=== PATIENT | female | born 1995 | race Two or more races ===

== ENCOUNTER 2024-09-15 13:54 | Emergency (ER) | payer MEDICAID, SELFPAY ==
[2024-09-15 13:55] VITALS: BMI 33.1
[2024-09-15 14:10] VITALS: BP 131/88; PULSE 84; RESP 20; TEMP 37.1; O2SAT 99
--- NOTE | 2024-09-15 14:14 | XR_ITS ---
Examination: Complete OB ultrasound, less than 14 weeks, transabdominal Date and time of exam: September 15, 2024 1531 hrs. Indications: Pelvic pain and vaginal bleeding beginning 2 days ago Technique: Obstetrical ultrasound images less than 14 weeks performed via transabdominal imaging Findings: Uterus 9.6 cm endometrial stripe 2.6 cm No intrauterine gestation Right ovary 4.6 cm arterial flow, possible gestational sac 13 mm in the right adnexal region with hyperechoic rim Left ovary 3.5 cm arterial flow Impression: No intrauterine gestation Suspicious for right ectopic , the appearance should be clinically correlated and short-term follow-up transvaginal pelvic sonography strongly recommended
[2024-09-15 14:38] LABS: Basophils % (Auto) 0 % (0-2.5); Eosinophils # (Auto) 0.1 Thou/mm3 (0.0-0.5); Eosinophils % (Auto) 1 % (0-10); Hemoglobin 10.8 g/dL (12.0-16.0); Immature Granulocytes % (Auto) 0 % (0-0); Immature Granulocytes Auto 0.02 Thou/mm3 (0.00-0.00); Lymphocytes # (Auto) 1.7 Thou/mm3 (1.0-4.8); Lymphocytes % (Auto) 19 % (10-50); Mean Corpuscular HGB Conc 32.7 g/dl (31.0-37.0); Mean Corpuscular Hemoglobin 24.9 pg (25.0-35.0); Mean Corpuscular Volume 76 fL (80-100); Monocytes # (Auto) 0.5 Thou/mm3 (0.0-0.8); Monocytes % (Auto) 6 % (0-12); Neutrophils # (Auto) 6.5 Thou/mm3 (1.8-7.7); Neutrophils % (Auto) 74 % (37-80); Nucleated Red Blood Cell % 0 /100 WBC (0); Platelet Count 219 Thou/mm3 (140-440); RDW Standard Deviation 41.3 fL (36.4-46.3); Red Blood Count 4.33 Miln/mm3 (4.00-5.20); White Blood Count 8.9 Thou/mm3 (3.6-11.0)
[2024-09-15 14:53] LABS: Collection Type, Urine Clean Catch; WBC,Urine 0 /hpf (0-5)
[2024-09-15 15:00] LABS: Alanine Aminotransferase < 7 U/L (10-49); Albumin, Serum 4.3 gm/dL (3.5-5.0); Albumin/Globulin Ratio 1.5 (1.2-2.2); Alkaline Phosphatase 91 U/L (46-116); Anion Gap 9 (7-16); Aspartate Amino Transferase 12 U/L (0-34); BUN/Creatinine Ratio 20 Ratio (12-20); Bilirubin,Total 0.6 mg/dL (0.3-1.2); Blood Urea Nitrogen 12 mg/dL (9-23); Calcium 8.9 mg/dL (8.3-10.6); Calcium (Corrected) 8.9 mg/dL (8.5-10.1); Carbon Dioxide 23.6 mMol/L (20.0-31.0); Chloride 106 mMol/L (98-107); Creatinine (Component) 0.6 mg/dL (0.6-1.3); Estimated Creatinine Clearance 119.4 mL/min (>60); Globulin 2.9 gm/dL (2.3-3.5); Glucose 99 mg/dL (74-106); Osmolality,Calculated 277 (275-295); Potassium 3.7 mMol/L (3.4-5.1); Sodium 139 mMol/L (136-145); Total Protein 7.2 gm/dL (5.7-8.2); eGFR > 60 See Note
[2024-09-15 15:08] LABS: Bilirubin,Urine Negative (Negative); Blood,Urine 2+ (Negative); Clarity,Urine Clear (Clear/Hazy); Color,Urine Yellow (Lt Yel-Yel); Glucose, Urine Trace (Negative); Ketones,Urine Trace (Negative); Leukocyte Esterase,Urine Negative (Negative); Nitrite,Urine Negative (Negative); PH,Urine 6.5 (5.0-7.0); Protein,Urine Trace (Neg - Trace); RBC,Urine 216 /hpf (0-3); Specific Gravity,Urine 1.032 (1.001-1.035); Squamous Epithelial Cell,Urine 1 /hpf (0-5); Urobilinogen,Urine Negative mg/dL (0.0-1.0)
[2024-09-15 15:19] LABS: HCG,Qualitative Serum Positive
--- NOTE | 2024-09-15 15:32 | PD.EDRME ---
Rapid Medical Screening Exam [facility] Arrival date/time: 09/15/24 13:54 29-year-old female with no known medical history presents to the emergency room with a chief complaint of vaginal bleeding, vaginal clots, and lower abdominal pain x 3 days. Patient states she has took multiple test which are negative I have greeted and performed a focused initial assessment of this patient. A comprehensive ED assessment and evaluation of the patient, analysis of all test results, and completion of the medical decision making process will be conducted by additional ED providers. Chief Complaint: Abdominal Pain Time Seen by Provider: 09/15/24 14:16 Vital signs: Vital Signs Temperature 98.8 F 09/15/24 14:10 Pulse Rate 84 09/15/24 14:10 Respiratory Rate 20 09/15/24 14:10 Blood Pressure 131/88 H 09/15/24 14:10 Pulse Oximetry (%) 99 09/15/24 14:10 Oxygen Delivery Method Room Air 09/15/24 14:10 Vital signs reviewed by provider: Yes
[2024-09-15 17:32] LABS: INR 0.9 (0.9-1.3); Partial Thromboplastin Time 25.2 Seconds (22.0-36.0); Prothrombin Time 10.3 Seconds (9.0-12.2)
[2024-09-15 17:52] LABS: Beta HCG,Quantitative 259 mIU/mL (<5.0)
--- NOTE | 2024-09-15 18:50 | EDNOTE_ITS ---
ED General RME/HPI General Chief complaint: Abdominal Pain Stated complaint: RLQ ABD PAIN X 2 DAYS Time Seen by Provider: 09/15/24 14:16 Arrival date/time: 09/15/24 13:54 CC: Right lower quadrant abdominal pain with vaginal bleeding pain started 3 days ago, was gone for 1 day and then came back currently the pain is a 6 and 7 for 10 scale the patient denies any back pain or left-sided abdominal pain no prior history of similar NSAIDs. Patient is currently a G7, P4. Not in any acute distress. RME / HPI RME / HPI narrative: 09/15/24 13:54 29-year-old female with no known medical history presents to the emergency room with a chief complaint of vaginal bleeding, vaginal clots, and lower abdominal pain x 3 days. Patient states she has took multiple test which are negative I have greeted and performed a focused initial assessment of this patient. A comprehensive ED assessment and evaluation of the patient, analysis of all test results, and completion of the medical decision making process will be conducted by additional ED providers. Related Data Home Medications ?Medication ?Instructions ?Recorded ?Confirmed vitamins-iron fumarate 27 1 tab PO QDAY 08/0610/30/22 mg iron-folic acid 0.8 mg tablet ( Vitamin) Previous Rx's ?Medication ?Instructions ?Recorded docusate sodium 100 mg capsule 100 mg PO BID #60 caps 10/30/22 (Colace) ferrous sulfate 325 mg (65 mg 325 mg PO BID #60 tabs 0 10/30/22 iron) tablet (Dheeraj-Time) ibuprofen 800 mg tablet 800 mg PO Q6H PRN pain #90 t abs 10/30/22 lanolin 50 % topical ointment 1 applic topical TID PRN skin 10/30/22 irritation #15 tubes meloxicam 7.5 mg tablet 7.5 mg PO QDAY #10 tabs 09/01 10/25 Allergies Allergy/AdvReac Type Severity Reaction Status Date / Time No Known Allergies Allergy Verified 09/15/24 13:57 Review of Systems Review of Systems Narrative Review of Systems: GEN: No fever, no chills, no weight loss EYES: No discharge, no visual changes, no pain HEENT: No ear pain, no congestion, no sore throat PULM: No shortness of breath, no cough, no congestion CV: No chest pain, no dyspnea on exertion, no palpitations GI: No nausea, no vomiting, no diarrhea, no pain, no constipation : No frequency, no urgency, no dysuria MUSC/SKEL: No joint pain, no back pain SKIN: No rash PSYCH: No hallucinations, no depression HEME/LYMPH: No easy bleeding or bruising tendencies NEURO: No weakness, no headache Past Medical History Past Medical History NEUROLOGIC: Negative Neurological Disorders CARDIAC: Negative Cardiac Disorders or Congestive Heart Failure RESPIRATORY: Negative Chronic Obstructive Pulmonary Disease (COPD) GASTROINTESTINAL: Negative Gastrointestinal Disorders GENITOURINARY: Negative Genitourinary Disorders or Renal Disease MUSCULOSKELETAL: Negative Musculoskeletal Disorders ENDOCRINE: Negative Endocrine Disorders, Diabetes Mellitus Type 1 or Diabetes Mellitus Type 2 HEMATOLOGIC: Negative Blood Disorders OTHER HISTORY: Negative Autoimmune Disease, Blood Transfusions, Blood Transfusion Reaction, Anesthesia Reactions, Organ Transplant, Chemotherapy, Radiation Therapy, Hyperbaric Therapy or Cancer Family History FAMILY HISTORY: Negative Family Psychiatric Problems, Family Respiratory Disorders, Family Cardiac Disorders, Family Gastrointestinal Problems, Family Cancer, Family Surgery or Family Anesthesia Reaction Surgical History SURGICAL: Negative Section or Organ Transplant Social History SMOKING STATUS: Never smoker ED Exam Narrative Physical exam: [General: Obese in mild discomfort but not in any acute distress Head normocephalic HEENT: Within acceptable limits Neck is supple nontender Chest equal chest rise nontender to palpation Respiratory: Clear to auscultation no wheezes crackles or rubs CV: Rate rhythm is regular no murmurs rubs or clicks Abdomen is distended secondary to body habitus right lower quadrant abdominal tenderness with palpation. Back: No CVA tenderness no spinous process tenderness from cervical spine thoracic and lumbar spine Skin: Intact no petechiae rash induration ulceration or crepitus Extremities: Moving all extremity against resistance cap refill less than 2 seconds neurosensory intact Neuro: Awake alert oriented x3 Glascow coma 15 no focal deficits] Course Course Course Narrative: Patient was seen by Dr. Nowak in the emergency room was decided the patient to be discharged home and follow-up in his office in 3 days for recheck. Patient will be discharged home with pain medications to follow-up as stated if the patient has worsening symptoms to return the emergency room for reevaluation. Quality Measures none Orders Category Date Time Status US OB <= 14 weeks fetus Stat Exams 09/15/24 14:14 Completed Beta HCG,Quantitative Stat Lab 09/15/24 14:26 Completed CBC Stat Lab 09/15/24 14:26 Completed CMP [Comprehensive Metabolic Panel] Stat Lab 09/15/24 14:26 Completed HCG,Qualitative Serum Stat Lab 09/15/24 14:26 Completed PT [Prothrombin Time with INR] Stat Lab 09/15/24 14:26 Completed PTT [Partial Thromboplastin Time] Stat Lab 09/15/24 14:26 Completed Type and Screen Stat Lab 09/15/24 14:26 Completed UA [Urinalysis] Stat Lab 09/15/24 14:43 Completed Vital Signs Vital signs: Vital Signs Temperature 98.8 F 09/15/24 14:10 Pulse Rate 84 09/15/24 14:10 Respiratory Rate 20 09/15/24 14:10 Blood Pressure 131/88 H 09/15/24 14:10 Pulse Oximetry (%) 99 09/15/24 14:10 Oxygen Delivery Method Room Air 09/15/24 14:10 [facility] Patient data External records reviewed:: [facility] previous records Clinical information provided by:: patient Social determinants that could affect healthcare access:: none Patient has the following chronic illnesses:: Obesity How is presenting disease/condition affected by chronic disease/condition?: u neffected by Evaluation data The following diagnostics were reviewed and interpreted by me:: lab results and radiology exam(s) Lab and/or radiology exams considered but not ordered:: CBC shows no acute leukocytosis H&H of 10.8 and 33.0. Platelets of 219 Coags within acceptable limits CMP shows no acute electrolyte imbalances renal impairment transaminitis or T. bili elevation. Quantitative is positive Beta hCG is 257 Urine 2+ urine RBCs to 16. Blood type is O+. Ultrasound shows a possible right ectopic on the adnexa. Interpretation Summary: Dr. Nowak contacted, he is going to come see the patient in the emergency room. Patient is stable not in any acute distress. Medications Medications considered but not ordered:: None Medication administrations:: None Consultations Consultation(s) initiated? (list below): Yes Diagnosis Differential Diagnosis ED Complaint MDM: Ectopic patient miscarriage early Most likely diagnosis given after review of the tests above:: Incomplete miscarriage Admission Indicated Admission indicated?: not indicated Explain why admission is indicated or not indicated:: Stable for close outpatient follow-up Admission Request Was there a request for admission?: No Disposition Plan Disposition Plan: Discharge Discharge Attestation Discharge Attestation: The patient and all family members were given an opportunity to ask questions and understood the discharge instructions. Discharge instructions specifically effects, indications for sooner follow up or return to the emergency department, and the expected course of current diagnosis. Patient condition: Stable Medical Decision Making Differential Diagnosis Differential Diagnosis: Ectopic patient miscarriage early Lab Data 09/15/24 14:26 09/15/24 14:26 Labs: Lab Results 09/15/24 09/15/24 Range/Units 14:26 14:43 WBC 8.9 (3.6-11.0) Thou/mm3 RBC 4.33 (4.00-5.20) Miln/mm3 Hgb 10.8 L (12.0-16.0) g/dL Hct 33.0 L (36.0-46.0) % MCV 76 L (80-100) fL MCH 24.9 L (25.0-35.0) pg MCHC 32.7 (31.0-37.0) g/dl RDW Std Deviation 41.3 (36.4-46.3) fL Plt Count 219 (140-440) Thou/mm3 Neut % (Auto) 74 (37-80) % Lymph % (Auto) 19 (10-50) % [place] % (Auto) 6 (0-12) % Eos % (Auto) 1 (0-10) % Baso % (Auto) 0 (0-2.5) % Neut # (Auto) 6.5 (1.8-7.7) Thou/mm3 Lymph # (Auto) 1.7 (1.0-4.8) Thou/mm3 [place] # (Auto) 0.5 (0.0-0.8) Thou/mm3 Eos # (Auto) 0.1 (0.0-0.5) Thou/mm3 Baso # (Auto) 0.0 (0.0-0.2) Thou/mm3 Immature Gran # (Auto) 0.02 H (0.00-0.00) Thou/mm3 Absolute Nucleated RBC 0.00 (0.00-0.00) Thou/mm3 Immature Gran % 0 (0-0) % Nucleated RBC % 0 (0) /100 WBC PT 10.3 (9.0-12.2) Seconds INR 0.9 (0.9-1.3) APTT 25.2 (22.0-36.0) Seconds Sodium 139 (136-145) mMol/L Potassium 3.7 (3.4-5.1) mMol/L Chloride 106 (98-107) mMol/L Carbon Dioxide 23.6 (20.0-31.0) mMol/L Anion Gap 9 (7-16) BUN 12 (9-23) mg/dL Creatinine 0.6 (0.6-1.3) mg/dL Estim Creat Clear Calc 119.4 (>60) mL/min eGFR > 60 (60 - ) See Note BUN/Creatinine Ratio 20 (12-20) Ratio Glucose 99 (74-106) mg/dL Calculated Osmolality 277 (275-295) Calcium 8.9 (8.3-10.6) mg/dL Corrected Calcium 8.9 (8.5-10.1) mg/dL Total Bilirubin 0.6 (0.3-1.2) mg/dL AST 12 (0-34) U/L ALT < 7 L (10-49) U/L Alkaline Phosphatase 91 (46-116) U/L Total Protein 7.2 (5.7-8.2) gm/dL Albumin 4.3 (3.5-5.0) gm/dL Globulin 2.9 (2.3-3.5) gm/dL Albumin/Globulin Ratio 1.5 (1.2-2.2) HCG, Qual Positive Beta HCG, Quant 259 (<5.0) mIU/mL Ur Collection Type Clean Catch Urine Color Yellow (Lt Yel-Yel) Urine Clarity Clear (Clear/Hazy) Urine pH 6.5 (5.0-7.0) Ur Specific Chromo 1.032 (1.001-1.035) Urine Protein Trace (Neg - Trace) Urine Glucose (UA) Trace (Negative) Urine Ketones Trace (Negative) Urine Blood 2+ A (Negative) Urine Nitrite Negative (Negative) Urine Bilirubin Negative (Negative) Urine Urobilinogen (Auto) Negative (0.0-1.0) mg/dL Ur Leukocyte Esterase Negative (Negative) Urine RBC 216 H (0-3) /hpf Urine WBC 0 (0-5) /hpf Ur Squamous Epith Cells 1 (0-5) /hpf Urine Bacteria None (None) Blood Type O Positive Antibody Screen NEGATIVE Blood Bank Wristband ID Yes Discharge Plan Plan Patient Disposition: HOME (Self Care) Patient condition on transfer: Stable Prescriptions/Referrals Prescriptions/Med Rec: New meloxicam 7.5 mg tablet 7.5 mg PO QDAY Qty: 10 0RF No Action Vitamin 27 mg iron- 0.8 mg Tablet 1 tab PO QDAY ibuprofen 800 mg tablet 800 mg PO Q6H MDD 4 PRN (Reason: pain) Qty: 90 0RF ferrous sulfate [Dheeraj-Time] 325 mg (65 mg iron) tablet 325 mg PO BID Qty: 60 0RF docusate sodium [Colace] 100 mg capsule 100 mg PO BID Qty: 60 0RF lanolin 50 % ointment 1 applic topical TID PRN (Reason: skin irritation) Qty: 15 0RF Referrals: Eliu (Referring)Jens MD [Referring Provider] - In 1 week No Primary/Family,Physician [Primary Care Provider] - In 1 week Problem List Clinical Impression: Incomplete miscarriage Patient/Caregiver Discharge Instructions Education Materials: ED Miscarriage, Incomplete Additional Instructions: As discussed with Dr. Nowak please follow-up in 3 days with his office if there is a worsening of symptoms including pain or heavy bleeding return the emergency room for reevaluation. Print Language: Kiswahili Stand Alone Forms: Rosalinda Award Info., Work/School Release, Patient Portal Info Letter PA/JOCELINE Supervising Physician EVE/JOCELINE Supervising Physician: Tomas Castellanos ENP
--- NOTE | 2024-09-15 19:03 | PC.NURSE ---
Initial contact with pt. Awake no distress noted. rlq abd pain radiating to the back started on Saturday perr pt. Pain tolerable per pt.
[2024-09-15 19:16] VITALS: BP 130/64; PULSE 78; RESP 18; TEMP 36.8; O2SAT 100
--- NOTE | 2024-09-15 19:20 | PC.NURSE ---
Pt seen by EDNA HERNANDEZ.
--- NOTE | 2024-09-15 19:22 | PD.GYNCONS ---
TECHNOLOGY LAB TEACHER HPI Data of Consult Patient: new to practice Consult date: 09/15/24 Primary Care Provider: Physician No Primary/Family Consult Narrative Reason for consult: vaginal bleeding and early complication History of present illness: Floresita Villaseñor, a 29-year-old female, presents to the emergency room with complaints of right abdominal pain. She is being evaluated for early with suspicion of a right ectopic . The patient reports experiencing right abdominal pain, though the onset and duration are not specified. She is currently experiencing vaginal bleeding, which has recently increased in intensity. Floresita does not have a regular OB doctor but has been seen at [facility] in [place] with Dr. Rosario. She denies knowledge of what an ectopic is when asked. Floresita's pain is significant enough to bring her to the emergency room, suggesting a moderate to severe intensity. However, she does not report any associated symptoms such as dizziness, lightheadedness, or increased nausea at this time cc:: cc: Review of Systems Review of Systems Systems Reviewed: All systems reviewed, normal except as documented Meds Home Medications and Allergies Home Medications ?Medication ?Instructions ?Recorded ?Confirmed ?Type vitamins-iron fumarate 27 1 tab PO QDAY 08/07/19 10/30/22 History mg iron-folic acid 0.8 mg tablet ( Vitamin) Allergies Allergy/AdvReac Type Severity Reaction Status Date / Time No Known Allergies Allergy Verified 09/15/24 13:57 Exam - TECHNOLOGY LAB TEACHER Vital Signs Temp Pulse Resp BP Pulse Ox O2 Del Method 98.3 F 78 18 130/64 100 Room Air 09/15/24 19:16 09/15/24 19:16 09/15/24 19:16 09/15/24 19:16 09/15/24 19:16 09/15/24 19:16 Constitutional Constitutional: no acute distress Routine HEENT Exam Head: Present normocephalic and atraumatic Eye: Present EOMI and PERRL ENT: Present mucous membranes moist Routine Abdominal Exam Abdominal: Present soft and normoactive bowel sounds Comments: mild TTP in RLQ, no rebound, no peritoneal signs Routine Psychiatric Exam Psychiatric: Present normal affect and normal thought process TECHNOLOGY LAB TEACHER - Results Labs 09/15/24 14:26 09/15/24 14:26 Labs: Short CBC 09/15/24 Range/Units 14:26 WBC 8.9 (3.6-11.0) Thou/mm3 Hgb 10.8 L (12.0-16.0) g/dL Hct 33.0 L (36.0-46.0) % Plt Count 219 (140-440) Thou/mm3 BMP 09/15/24 14:26 Sodium 139 Potassium 3.7 Chloride 106 Carbon Dioxide 23.6 BUN 12 Creatinine 0.6 Glucose 99 Calcium 8.9 Liver Function 09/15/24 Range/Units 14:26 Total Bilirubin 0.6 (0.3-1.2) mg/dL AST 12 (0-34) U/L ALT < 7 L (10-49) U/L Alkaline Phosphatase 91 (46-116) U/L Albumin 4.3 (3.5-5.0) gm/dL Urine 09/15/24 Range/Units 14:43 Urine Color Yellow (Lt Yel-Yel) Urine Clarity Clear (Clear/Hazy) Urine pH 6.5 (5.0-7.0) Ur Specific [place] 1.032 (1.001-1.035) Urine Protein Trace (Neg - Trace) Urine Glucose (UA) Trace (Negative) Assessment and Plan Assessment and plan (1) of unknown anatomic location: Status: Acute Assessment and plan: Problem-Based Assessment and Plan Floresita Villaseñor, a 29-year-old female, presents to the emergency room with right abdominal pain and is being evaluated for early with suspicion of right ectopic . Suspected Right Ectopic Patient presents with right abdominal pain and ultrasound findings suspicious for right ectopic . Ultrasound shows no intrauterine gestation, with a possible 13 mm gestational sac and hyperechoic rim in the right adnexa. Uterus measures 9.6 cm with an endometrial stripe of 2.6 cm. Right ovary is 4.6 cm and left ovary is 3.5 cm, both with atrial flow. Serum hCG is low at 258 mIU/mL. Differential diagnoses include ectopic , early intrauterine not yet visible, and recent miscarriage with residual corpus luteum cyst. The low hCG level and presence of bleeding suggest the possibility of a miscarriage, but ectopic cannot be ruled out at this time. - Repeat ultrasound and serum hCG in one week (Saturday) - Patient to follow up in hospital clinic on Saturday for reassessment - Monitor for worsening symptoms (increased pain, dizziness, lightheadedness, nausea) - Instruct patient to return to ER if symptoms worsen - If ectopic is confirmed: - Consider medical management with methotrexate if appropriate - Surgical intervention may be necessary if medical management is not suitable - If not ectopic, refer back to primary OB provider (Dr. Rosario at [facility]) Vaginal Bleeding Patient reports increased vaginal bleeding, which may be consistent with a miscarriage. Given the low hCG levels and ultrasound findings, this bleeding could represent the passage of tissue from either an intrauterine with corpus luteum cyst or ectopic . However due to the low hcg, I do not see the need for immediate surgical or medical intervention at this time. - Reassure patient that increased bleeding is not necessarily concerning - Advise that bleeding is likely to stop on its own - Monitor amount and duration of bleeding Medical Decision Making Floresita Villaseñor is a 29-year-old female presenting to the emergency room with right abdominal pain, being evaluated for early . Ultrasound findings are suspicious for a right ectopic , showing no intrauterine gestation and a possible 13mm gestational sac in the right adnexa with a hyperechoic rim. The patient's serum HCG is low at 258 mIU/mL, which could indicate an early ectopic , a very early intrauterine , or a recent miscarriage. The differential diagnosis includes ectopic , early intrauterine , and a corpus luteum cyst following a miscarriage. Given the low HCG and inconclusive ultrasound, there is significant diagnostic uncertainty. The clinician has decided to observe and monitor the patient rather than intervene immediately. This approach allows for the possibility of an early intrauterine to develop or for a definitive diagnosis of ectopic to be made. The plan to repeat ultrasound and HCG testing in one week will help determine if the is progressing normally or if it is indeed ectopic. The clinician considered potential complications, noting that if confirmed as ectopic, medical management with medication to dissolve the might be possible, given the low HCG levels, avoiding the need for surgery. OB Ultrasound OB Ultrasound Ultrasound technique: transabdominal Gestational sac assessment: Presence, location, size, shape: Findings: Uterus 9.6 cm endometrial stripe 2.6 cm No intrauterine gestation Right ovary 4.6 cm arterial flow, possible gestational sac 13 mm in the right adnexal region with hyperechoic rim Left ovary 3.5 cm arterial flow Impression: No intrauterine gestation Suspicious for right ectopic , the appearance should be clinically correlated and short-term follow-up transvaginal pelvic sonography strongly recommended
[2024-09-15 19:37] VITALS: BP 130/64; PULSE 83; RESP 16; TEMP 36.7; O2SAT 100
== END 2024-09-15 19:38 | disposition home or self-care (01) ==
PROVIDERS: Nurse Practitioner Family; Emergency Provider Emergency Medicine
DX: O03.4 Incomplete spontaneous abortion without complication (principal)
CPT/HCPCS: 36415; 76801; 80053; 81001; 84702; 84703; 85025; 85610; 85730; 86850; 86900; 86901; 99284

== ENCOUNTER 2024-09-22 11:31 | Outpatient (AMB) | payer MEDICAID, SELFPAY ==
--- NOTE | 2024-09-22 12:00 | AMB.GYNCLNOT ---
Allergies/Home Meds Allergies & Medications Allergies No Known Allergies Allergy (Verified 09/15/24 13:57) Intake Visit Data Collection New Patient or Established: Established Patient (seen at [facility] within 3 years) Reason for Visit:: Right-sided pain, vaginal bleeding, mild nausea and vomiting Seen by Clinical Staff ONLY (RN/MA): No C[employer] Clippings Required: Yes Do You Feel Safe at Home: Yes Authorities Contacted: N/A PCP or OBGYN visit in last 3 months: Yes Are you currently on any form of Control: No Last menstrual period: 07/07/24 Pain Present Currently: No Pain Scale Used: Aldana-Child/Numerical Pain scale:: 0 Smoking Status Smoking Status: Never smoker 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 1. Little interest or pleasure in doing things: not at all 2. Feeling down, depressed, or hopeless: not at all Total score: 0 PHQ-9 3. Trouble falling or staying asleep, or sleeping too much: Not at all 4. Feeling tired or having little energy: Not at all 5. Poor appetite or overeating: Not at all 6. Feeling bad about yourself - or that you are a failure or have let yourself or your family down: Not at all 7. Trouble concentrating on things, such as reading the newspaper or watching television: Not at all 8. Moving or speaking so slowly that other people could have noticed? - Or the opposite - being so fidgety or restless that you have been moving around a lot more than usual: not at all 9. Thoughts that you would be better off or of hurting yourself in some way: Not at all Total score: 0 If you checked off any problems, how difficult have these problems made it for you to do your work, take care of things at home, or get along with other people?: not difficult at all Source: Developed by Drs. Florentino Anaya, Aidee Paz, Jett Iglesias and colleagues, with an educational blair from [employer]. Depression screen completed yes Social History Living Situation History Housing: Apartment Tobacco History Smoking Status: Never smoker Alcohol History Alcohol Intake: Never Domestic Abuse History Do You Feel Safe at Home: Yes Past Medical History Past Medical History Have you ever been diagnosed with any of the following: Cardiology Problems Congestive Heart Failure: No Respiratory Problems Chronic Obstructive Pulmonary Disease (COPD): No Genital/Urinary Problems Renal Disease: No Endocrine Problems Diabetes Mellitus Type 1: No Diabetes Mellitus Type 2: No Other Problems Blood Transfusions: No Blood Transfusion Reaction: No Anesthesia Reactions: No Organ Transplant: No Chemotherapy: No Radiation Therapy: No Hyperbaric Therapy: No Cancer: No History of Present Illness HPI Narrative Floresita Villaseñor, a patient with a history of early , presents for follow-up after an emergency room visit on 09/15/2024 for vaginal bleeding and right lower quadrant pain. She reports persistent pain in her right side and continues to experience a small amount of vaginal bleeding, which she describes as just a little bit and not comparable to a menstrual period. The patient also mentions experiencing some nausea and vomiting, though she characterizes it as not a lot. During her previous emergency room visit, Floresita was evaluated for vaginal bleeding and right lower quadrant pain in early . At that time, she was discharged with a differential diagnosis including early , failed /blighted ovum, and right ectopic . Today's visit is a follow-up to reassess her condition and conduct further testing. Review of Systems General: Negative for fever, chills. Gastrointestinal: Positive for nausea, negative for vomiting. Genitourinary: Positive for vaginal bleeding. Musculoskeletal: Positive for right lower quadrant pain. Review of Systems Review of Systems Systems Reviewed: All systems reviewed, normal except as documented Exam General Limitations: no limitations General Appearance: alert, in no apparent distress, comfortable, cooperative, healthy appearing, well developed and well groomed Head Head exam: atraumatic, normocephalic and normal inspection Neck Neck exam: Present normal inspection, full ROM and trachea midline Chest Chest inspection: Present normal inspection and symmetric chest wall rise Abdominal Abdominal exam: Present soft and normal bowel sounds Psych Psychiatric exam: Present normal affect and normal mood Skin Skin exam: Present warm, dry, intact and normal color Assessment & Plan Diagnosis / Problem List (1) Incomplete miscarriage: Status: Acute (2) of unknown anatomic location: Status: Acute Plan Laboratory, Imaging, and Diagnostic Test Results - Date: 09/15/2024 - Serum hC mIU/mL - Ultrasound: - Uterus: 9.6 cm - Endometrial stripe: 2.6 cm - Right ovary: 4.6 cm with arterial flow - Left ovary: 3.5 cm with arterial flow Floresita Villaseñor, previously seen in the emergency room on 09/15/2024 for vaginal bleeding and right lower quadrant pain in early , presents for follow-up with persistent right-sided pain and minimal vaginal bleeding. Suspected Ectopic Assessment: Patient was initially seen in the emergency room on 09/15/2024 with vaginal bleeding and right lower quadrant pain in early . At that time, serum hCG was 258 mIU/mL. Ultrasound showed a uterus measuring 9.6 cm with an endometrial stripe of 2.6 cm. Right ovary measured 4.6 cm and left ovary 3.5 cm, both with arterial flow. Patient had mild right adnexal tenderness. Today, she reports persistent right-sided pain and minimal vaginal bleeding. Given these findings and symptoms, the differential diagnosis includes early intrauterine , failed /blighted ovum, and right ectopic . Plan: - Order follow-up transvaginal ultrasound (stat, ectopic follow-up) - Order repeat serum hCG - Schedule follow-up appointment after completion of ultrasound and blood test - Instruct patient to return sooner if symptoms worsen Office Procedures OB Clinic LOC & Office Proc's Nursing/Assessment Patient Status: Established Patient OB Clinic Nursing Assessment: Medication Reconciliation, Update PMH in EMR and Vital Signs OB Clinic Coordination of Care: Complex Care and Chronic Disease 1-5, Consent,records obtained, informed consent, Education Simp Pt/Fam, 1 Ins Authorization, Lab and Imaging orders and Staff clarify orders Established Patient Charge Established Patient Point Assignment: 115 Established Patient Point Charge: EP Level 3 (80-115)
== END 2024-09-22 12:15 | disposition home or self-care (01) ==
LOC: HODSOBC 11:31
PROVIDERS: Supervising Provider Obstetrics & Gynecology; Visit Provider Obstetrics & Gynecology
DX: O36.80X0 Pregnancy with inconclusive fetal viability, not applicable or unspecified (principal)
CPT/HCPCS: 99213; G0463

== ENCOUNTER 2024-09-28 16:55 | Emergency (ER) | payer MEDICAID, SELFPAY ==
[2024-09-28 16:56] VITALS: BMI 33.1
[2024-09-28 18:26] VITALS: BP 162/84; PULSE 84; RESP 18; TEMP 36.8; O2SAT 98
--- NOTE | 2024-09-28 18:31 | XR_ITS ---
Examination: OB Transvaginal ultrasound of the pelvis, complete Technique: Transvaginal sonographic images pelvis performed using prince scale imaging Exam date and time: September 28, 2024 1908 hours INDICATIONS: Vaginal bleeding and right pelvic pain beginning 2 weeks ago, pelvic sonogram September 15, 2024 suspicious for right ectopic FINDINGS: Uterus 9.1 cm endometrial stripe 1.2 cm No uterine mass or intrauterine gestation Right ovary 3.9 cm arterial flow 23 x 22 mm cyst Left ovary 2.7 cm arterial flow No ectopic currently depicted IMPRESSION: No intrauterine gestation No findings diagnostic for ectopic Suggest continued short term follow-up transvaginal pelvic sonography as clinically warranted.
--- NOTE | 2024-09-28 18:32 | EDNOTE_ITS ---
ED OB Contraction Preg RMI/HPI General Chief complaint: Abdominal Pain Stated complaint: ECTOPIC PREG RLQ PAIN INCREASED Time Seen by Provider: 09/28/24 18:12 Source: patient, RN notes reviewed and old records reviewed Arrival date/time: 09/28/24 16:55 Mode of arrival: ambulatory Limitations: no limitations RME / HPI RME / HPI Narrative: 29yof A2 unknown weeks gestation presents to ED for right pelvic pain x15 days. Patient was evaluated in ED at symptom onset on 09/15. Ob ultrasound concerning for right ectopic . hCG was 259 at that time. Patient had f/u in Dr. Nowak's office last week. She reports vaginal bleeding the past 4 days which prompted ED visit today. Continues to have right pelvic pain radiating to lower back. Patient has taken meloxicam without relief. Related Data Home Medications ?Medication ?Instructions ?Recorded ?Confirmed vitamins-iron fumarate 27 1 tab PO QDAY 08/0609/29/24 mg iron-folic acid 0.8 mg tablet ( Vitamin) Previous Rx's ?Medication ?Instructions ?Recorded docusate sodium 100 mg capsule 100 mg PO BID #60 caps 10/30/22 (Colace) ferrous sulfate 325 mg (65 mg 325 mg PO BID #60 tabs 0 10/30/22 iron) tablet (Dheeraj-Time) ibuprofen 800 mg tablet 800 mg PO Q6H PRN pain #90 t abs 10/30/22 lanolin 50 % topical ointment 1 applic topical TID PRN skin 10/30/22 irritation #15 tubes meloxicam 7.5 mg tablet 7.5 mg PO QDAY #10 tabs 09/01 10/25 ondansetron 4 mg disintegrating 4 mg PO Q6H PRN nausea and 09/28/24 tablet vomiting #10 tabs Allergies Allergy/AdvReac Type Severity Reaction Status Date / Time No Known Allergies Allergy Verified 09/29/24 15:32 Review of Systems Review of Systems Systems Reviewed: All systems reviewed, normal except as documented Constitutional Constitutional: Denies chills and Denies fever(s) Gastrointestinal Gastrointestinal: Denies nausea and Denies vomiting Genitourinary Genitourinary: Reports abnormal vaginal bleeding and Reports pelvic pain Past Medical History Past Medical History GASTROINTESTINAL: Positive Obesity Surgical History OTHER SURGICAL HX: denies pshx Social History SMOKING STATUS: Never smoker SUBSTANCE USE: does not use ALCOHOL: Never ED Exam General Limitations: Present no limitations General appearance: Present alert and in no apparent distress Head Head exam: Present atraumatic and normocephalic Eye Eye exam: Present normal appearance, PERRL and EOMI ENT ENT exam: Present normal exam and mucous membranes moist Neck Neck exam: Present normal inspection and full ROM Chest Chest inspection: Present normal inspection and symmetric chest wall rise Respiratory Respiratory exam: Present normal lung sounds bilaterally; Absent respiratory distress Cardiovascular Cardiovascular exam: Present regular rate and normal rhythm Abdominal Exam Abdominal exam: Present soft; Absent distention, tenderness, guarding or rebound Extremities Exam Extremities exam: Present normal inspection and full ROM Back Exam Back exam: Absent CVA tenderness (R) or CVA tenderness (L) Neurological Exam Neurological exam: Present alert and oriented X3 Psychiatric Psychiatric exam: Present normal affect and normal mood Skin Skin exam: Present warm, dry, intact and normal color Course Course Course Narrative: 2012: Consult to OB Dr. Rey. Recommended follow-up with Dr. Nowak in office tomorrow to review options for further management. Quality Measures none Orders Category Date Time Status US OB transvaginal Stat Exams 09/28/24 18:31 Completed ABO/RH Type Stat Lab 09/28/24 19:29 Completed Beta HCG,Quantitative Stat Lab 09/28/24 19:29 Completed CBC Stat Lab 09/28/24 19:29 Completed Vital Signs Vital signs: Vital Signs Temperature 98.3 F 09/28/24 18:26 Pulse Rate 84 09/28/24 18:26 Respiratory Rate 18 09/28/24 18:26 Blood Pressure 162/84 H 09/28/24 18:26 Pulse Oximetry (%) 98 09/28/24 18:26 Oxygen Delivery Method Room Air 09/28/24 18:26 Vaginal Bleeding MDM Narrative MDM Narrative: 29yof A2 unknown weeks gestation presents to ED for right pelvic pain x15 days. Patient was evaluated in ED at symptom onset on 09/15. Ob ultrasound concerning for right ectopic . hCG was 259 at that time. Patient had f/u in Dr. Nowak's office last week. She reports vaginal bleeding the past 4 days which prompted ED visit today. Continues to have right pelvic pain radiati ng to lower back. Patient has taken meloxicam without relief. Patient updated on labs and imaging. Instructed to follow-up in clinic with Dr. Nowak tomorrow. Patient comfortable with plan of care. Stable for discharge, RTED precautions given. Patient data External records reviewed:: [facility] previous records (09/15/2024 ED visit for inco mplete miscarriage) Clinical information provided by:: patient Social determinants that could affect healthcare access:: other (specify) (Unemployed) Patient has the following chronic illnesses:: Obesity How is presenting disease/condition affected by chronic disease/condition?: uneffected by Evaluation data The following diagnostics were reviewed and interpreted by me:: lab results and radiology exam(s) Lab and/or radiology exams considered but not ordered:: none Interpretation Summary: hgb 11 Ob ultrasound: no IUP per my read AboRh: O positive Hcg 272 (minimal increase from 259 on 09/15) Medications / Prescriptions Medications or Prescriptions considered but not ordered:: No antibiotics recommended at this time Medication administrations:: None Consultations Consultation(s) initiated? (list below): Yes Consultation #1 (Physician, Specialty, Details): Dr. Rey. See ED course. Diagnosis Vaginal Bleeding Differential Diagnosis: missed , threatened , incomplete , ectopic without intrauterine and vaginal bleeding Most likely diagnosis given after review of the tests above:: Miscarriage Admission Indicated Admission indicated?: not indicated Admission Request Was there a request for admission?: No Disposition Plan Disposition Plan: Discharge Discharge Attestation Discharge Attestation: The patient and all family members were given an opportunity to ask questions and understood the discharge instructions. Discharge instructions specifically effects, indications for sooner follow up or return to the emergency department, and the expected course of current diagnosis. Patient condition: Stable Discharge Plan Plan Patient Disposition: HOME (Self Care) Patient condition on transfer: Stable Prescriptions/Referrals Prescriptions/Med Rec: New ondansetron 4 mg tablet,disintegrating 4 mg PO Q6H PRN (Reason: nausea and vomiting) Qty: 10 0RF No Action Vitamin 27 mg iron- 0.8 mg Tablet 1 tab PO QDAY meloxicam 7.5 mg tablet 7.5 mg PO QDAY Qty: 10 0RF ibuprofen 800 mg tablet 800 mg PO Q6H MDD 4 PRN (Reason: pain) Qty: 90 0RF ferrous sulfate [Dheeraj-Time] 325 mg (65 mg iron) tablet 325 mg PO BID Qty: 60 0RF docusate sodium [Colace] 100 mg capsule 100 mg PO BID Qty: 60 0RF lanolin 50 % ointment 1 applic topical TID PRN (Reason: skin irritation) Qty: 15 0RF Referrals: No Primary/Family,Physician [Primary Care Provider] - In 1 week Problem List Clinical Impression: Miscarriage, Vaginal bleeding Patient/Caregiver Discharge Instructions Education Materials: ED Miscarriage, Incomplete Additional Instructions: Please follow-up with Dr. Nowak in clinic tomorrow. Your hcg was 272 today. Print Language: Togolese Stand Alone Forms: Rosalinda Award Info., Patient Portal Info Letter PA/GUARD DANCE HALL Supervising Physician PA/GUARD DANCE [employer] Supervising Physician: Justo
[2024-09-28 19:39] LABS: Basophils # (Auto) 0.1 Thou/mm3 (0.0-0.2); Basophils % (Auto) 1 % (0-2.5); Eosinophils # (Auto) 0.2 Thou/mm3 (0.0-0.5); Eosinophils % (Auto) 3 % (0-10); Hematocrit 34.5 % (36.0-46.0); Hemoglobin 11.1 g/dL (12.0-16.0); Immature Granulocytes % (Auto) 0 % (0-0); Immature Granulocytes Auto 0.02 Thou/mm3 (0.00-0.00); Lymphocytes # (Auto) 2.2 Thou/mm3 (1.0-4.8); Lymphocytes % (Auto) 29 % (10-50); Mean Corpuscular HGB Conc 32.2 g/dl (31.0-37.0); Mean Corpuscular Hemoglobin 25.3 pg (25.0-35.0); Mean Corpuscular Volume 79 fL (80-100); Monocytes # (Auto) 0.5 Thou/mm3 (0.0-0.8); Monocytes % (Auto) 6 % (0-12); Neutrophils # (Auto) 4.7 Thou/mm3 (1.8-7.7); Neutrophils % (Auto) 61 % (37-80); Nucleated Red Blood Cell % 0 /100 WBC (0); Platelet Count 278 Thou/mm3 (140-440); RDW Standard Deviation 43.8 fL (36.4-46.3); Red Blood Count 4.38 Miln/mm3 (4.00-5.20); White Blood Count 7.6 Thou/mm3 (3.6-11.0)
[2024-09-28 19:57] LABS: Beta HCG,Quantitative 272 mIU/mL (<5.0)
[2024-09-28 20:50] VITALS: RESP 18
== END 2024-09-28 20:51 | disposition home or self-care (01) ==
PROVIDERS: Physician Assistant; Emergency Provider Emergency Medicine
DX: O03.4 Incomplete spontaneous abortion without complication (principal)
CPT/HCPCS: 36415; 76817; 84702; 85025; 86900; 86901; 99284

== ENCOUNTER 2024-09-29 15:24 | Outpatient (AMB) | payer MEDICAID, SELFPAY ==
[2024-09-29 15:30] VITALS: BP 127/80; PULSE 92; RESP 16; TEMP 36.8; O2SAT 98; BMI 33.1
--- NOTE | 2024-09-29 15:30 | AMB.GYNCLNOT ---
Vital Signs 09/29/24 15:30 Height 1.5 m Height Method Measured Weight 74.616 kg Weight Measurement Method Standing Scale BMI 33.1 BP 127/80 Blood Pressure Source Automatic Cuff Blood Pressure Location Left Upper Arm Position Sitting Respiration 16 Pulse 92 Pulse Source Monitor Temp 98.2 F Temp Source Oral Pulse Oximetry (%) 98 Oxygen Delivery Method Room Air Allergies/Home Meds Allergies & Medications Allergies No Known Allergies Allergy (Verified 09/29/24 15:32) Medication Reconciliation vitamins-iron fumarate 27 mg iron-folic acid 0.8 mg tablet ( Vitamin) 1 tab PO QDAY 08/07/19 [History Confirmed 09/29/24] docusate sodium 100 mg capsule (Colace) 100 mg PO BID #60 caps 10/30/22 [Rx Confirmed 09/29/24] ferrous sulfate 325 mg (65 mg iron) tablet (Dheeraj-Time) 325 mg PO BID #60 tabs 10/30/22 [Rx Confirmed 09/29/24] ibuprofen 800 mg tablet 800 mg PO Q6H PRN pain #90 tabs 10/30/22 [Rx Confirmed 09/29/24] lanolin 50 % topical ointment 1 applic topical TID PRN skin irritation #15 tubes 10/30/22 [Rx Confirmed 09/29/24] meloxicam 7.5 mg tablet 7.5 mg PO QDAY #10 tabs 09/15/24 [Rx Confirmed 09/29/24] ondansetron 4 mg disintegrating tablet 4 mg PO Q6H PRN nausea and vomiting #10 tabs 09/28/24 [Rx Confirmed 09/29/24] Intake Visit Data Collection New Patient or Established: Established Patient (seen at [facility] within 3 years) Reason for Visit:: Follow-up for ectopic -related concerns, really bad back pain Seen by Clinical Staff ONLY (RN/MA): No Elementary Esl Teacher Required: Yes Elementary Esl Teacher's name/title: DB ROJAS Do You Feel Safe at Home: Yes Authorities Contacted: N/A PCP or OBGYN visit in last 3 months: Yes Hx Now: No Are you currently on any form of Control: No Last menstrual period: 07/07/24 Pain Present Currently: Yes Pain Location: Abdomen (LOWER ABDOMEN) Pain Scale Used: Aldana-Child/Numerical Pain scale:: 4 Smoking Status Smoking Status: Never smoker Tuberculosis Specialist history Tuberculosis Specialist History Menstrual regularity: regular Flow: normal Monthly: Yes How many days does period last: 5 Age at menarche: 7 Currently sexually active: No If not currently sexually active, have you ever been sexually active: Yes Questionnaires Covid-19 Vaccine Questionnaire Has patient been vacinated for Covid-19 Have you been vacinated for Covid-19: No PHQ-9 PHQ-2 Over the last 2 weeks, how often have you been bothered by any of the following problems? 1. Little interest or pleasure in doing things: not at all 2. Feeling down, depressed, or hopeless: not at all Total score: 0 PHQ-9 3. Trouble falling or staying asleep, or sleeping too much: Not at all 4. Feeling tired or having little energy: Not at all 5. Poor appetite or overeating: Not at all 6. Feeling bad about yourself - or that you are a failure or have let yourself or your family down: Not at all 7. Trouble concentrating on things, such as reading the newspaper or watching television: Not at all 8. Moving or speaking so slowly that other people could have noticed? - Or the opposite - being so fidgety or restless that you have been moving around a lot more than usual: not at all 9. Thoughts that you would be better off or of hurting yourself in some way: Not at all Total score: 0 Source: Developed by Drs. Florentino Anaya, Aidee Paz, Jett Iglesias and colleagues, with an educational blair from [facility]. Depression screen completed yes Social History Living Situation History Housing: Apartment Tobacco History Smoking Status: Never smoker Alcohol History Alcohol Intake: Never Domestic Abuse History Do You Feel Safe at Home: Yes Past Medical History Past Medical History Have you ever been diagnosed with any of the following: Cardiology Problems Congestive Heart Failure: No Respiratory Problems Chronic Obstructive Pulmonary Disease (COPD): No Stomache/Intestinal Problems Obesity: Yes Genital/Urinary Problems Renal Disease: No Endocrine Problems Diabetes Mellitus Type 1: No Diabetes Mellitus Type 2: No Other Problems Blood Transfusions: No Blood Transfusion Reaction: No Anesthesia Reactions: No Organ Transplant: No Chemotherapy: No Radiation Therapy: No Hyperbaric Therapy: No Cancer: No History of Present Illness CORBY Canas presents for follow-up after a recent loss with vaginal bleeding and right pelvic pain beginning 2 weeks ago. She reports experiencing really bad back pain recently, which prompted her to discontinue an unspecified treatment or medication. The patient's recent ultrasound showed complex findings with no definitive intrauterine gestation or ectopic . Floresita underwent blood tests with beta-hCG levels of 259 on 09/15 and 272 on 09/28, indicating stable hormone levels. She is scheduled for a repeat blood test in 7 days to reassess hormone levels. Review of Systems Musculoskeletal: Positive for back pain. Review of Systems Review of Systems Systems Reviewed: All systems reviewed, normal except as documented Exam General General Appearance: alert, in no apparent distress and healthy appearing Head Head exam: atraumatic Neck Neck exam: Present normal inspection and trachea midline Chest Chest inspection: Present normal inspection and symmetric chest wall rise External exam: Present normal external exam; Absent tenderness Neuro Neurological exam: Present oriented X3 Psych Psychiatric exam: Present normal affect and normal mood Results Objective Laboratory: - Date: 09/15/2024 - HC - Date: 09/28/2024 - HC Imaging: - Ultrasound: 09/28/2024 - Uterus: 9.1 cm, endometrial stripe 1.2 cm - Right ovary: 3.9 cm, 23 x 22 mm cyst - Left ovary: 2.7 cm - No intrauterine gestation - No definitive ectopic findings Assessment & Plan Diagnosis / Problem List (1) Vaginal bleeding: Status: Acute (2) Miscarriage: Status: Acute (3) of unknown anatomic location: Status: Acute Plan loss/ Ectopic with persistent beta-hCG Assessment: Ultrasound on 09/28 shows uterus 9.1 cm with endometrial stripe 1.2 cm, right ovary 3.9 cm with 23 x 22 mm cyst, left ovary 2.7 cm. No intrauterine gestation or definitive ectopic identified. Beta-hCG levels have been stable: 259 on 09/15 and 272 on 09/28. Patient reports recent back pain, which requires continued monitoring. Plan: - Repeat beta-hCG blood test in 7 days (next Saturday) - Follow-up appointment scheduled for next Saturday to review results - If beta-hCG levels have not decreased by next follow-up, plan for administration of medication (likely methotrexate) to induce beta-hCG decline - Single injection to be administered in-office - Continue monitoring for any new or worsening symptoms Office Procedures OB Clinic LOC & Office Proc's Nursing/Assessment Patient Status: Established Patient OB Clinic Nursing Assessment: Medication Reconciliation, Update PMH in EMR and Vital Signs OB Clinic Coordination of Care: Complex Care and Chronic Disease 1-5, Consent,records obtained, informed consent, Education Simp Pt/Fam, Results/Orders obtained and Staff clarify orders Established Patient Charge Established Patient Point Assignment: 90 Established Patient Point Charge: EP Level 3 (80-115)
== END 2024-09-29 15:44 | disposition home or self-care (01) ==
LOC: HODSOBC 15:24
PROVIDERS: Supervising Provider Obstetrics & Gynecology; Visit Provider Obstetrics & Gynecology
DX: O03.9 Complete or unspecified spontaneous abortion without complication (principal); O36.80X0 Pregnancy with inconclusive fetal viability, not applicable or unspecified
CPT/HCPCS: 99213; G0463

== ENCOUNTER 2024-10-06 12:50 | Outpatient (AMB) | payer MEDICAID, SELFPAY ==
[2024-10-06 13:05] VITALS: BP 136/84; PULSE 94; RESP 18; TEMP 36.2; O2SAT 972; BMI 32.9
--- NOTE | 2024-10-06 13:05 | AMB.GYNCLNOT ---
Vital Signs 10/06/24 13:05 Height 1.5 m Height Method Stated Weight 74.106 kg Weight Measurement Method Standing Scale BMI 32.9 BP 136/84 H Blood Pressure Source Automatic Cuff Blood Pressure Location Left Upper Arm Position Sitting Respiration 18 Pulse 94 Pulse Source Monitor Temp 97.2 F Temp Source Oral Pulse Oximetry (%) 972 H Oxygen Delivery Method Room Air Allergies/Home Meds Allergies & Medications Allergies No Known Allergies Allergy (Verified 10/06/24 13:07) Medication Reconciliation vitamins-iron fumarate 27 mg iron-folic acid 0.8 mg tablet ( Vitamin) 1 tab PO QDAY 08/07/19 [History Confirmed 10/06/24] docusate sodium 100 mg capsule (Colace) 100 mg PO BID #60 caps 10/30/22 [Rx Confirmed 10/06/24] ferrous sulfate 325 mg (65 mg iron) tablet (Dheeraj-Time) 325 mg PO BID #60 tabs 10/30/22 [Rx Confirmed 10/06/24] ibuprofen 800 mg tablet 800 mg PO Q6H PRN pain #90 tabs 10/30/22 [Rx Confirmed 10/06/24] lanolin 50 % topical ointment 1 applic topical TID PRN skin irritation #15 tubes 10/30/22 [Rx Confirmed 10/06/24] meloxicam 7.5 mg tablet 7.5 mg PO QDAY #10 tabs 09/15/24 [Rx Confirmed 10/06/24] ondansetron 4 mg disintegrating tablet 4 mg PO Q6H PRN nausea and vomiting #10 tabs 09/28/24 [Rx Confirmed 10/06/24] methotrexate sodium 10 mg tablet 50 mg (5 x 10 mg) PO Q2H 2 doses #10 tabs 10/06/24 [Rx] Intake Visit Data Collection New Patient or Established: Established Patient (seen at [facility] within 3 years) Reason for Visit:: Follow-up for of unknown location, right-sided abdominal pain (resolved) Parts Assembler Required: Yes Parts Assembler's name/title: JEFF ROJAS / TILE DITCHER Do You Feel Safe at Home: Yes Authorities Contacted: N/A PCP or OBGYN visit in last 3 months: No Date of Last PCP or OBGYN visit: 09/29/24 Hx Now: Yes Are you currently on any form of Control: No Pain Present Currently: No Pain Scale Used: Aldana-Child/Numerical Pain scale:: 0 Smoking Status Smoking Status: Never smoker Staff Anesthesiologist history Staff Anesthesiologist History Menstrual regularity: regular Flow: normal Monthly: Yes Currently sexually active: Yes Questionnaires Covid-19 Vaccine Questionnaire Has patient been vacinated for Covid-19 Have you been vacinated for Covid-19: Yes PHQ-9 PHQ-2 Over the last 2 weeks, how often have you been bothered by any of the following problems? 1. Little interest or pleasure in doing things: not at all 2. Feeling down, depressed, or hopeless: not at all Total score: 0 PHQ-9 3. Trouble falling or staying asleep, or sleeping too much: Not at all 4. Feeling tired or having little energy: Not at all 5. Poor appetite or overeating: Not at all 6. Feeling bad about yourself - or that you are a failure or have let yourself or your family down: Not at all 7. Trouble concentrating on things, such as reading the newspaper or watching television: Not at all 8. Moving or speaking so slowly that other people could have noticed? - Or the opposite - being so fidgety or restless that you have been moving around a lot more than usual: not at all 9. Thoughts that you would be better off or of hurting yourself in some way: Not at all Total score: 0 If you checked off any problems, how difficult have these problems made it for you to do your work, take care of things at home, or get along with other people?: not difficult at all Source: Developed by Drs. Florentino Anaya, Aidee Paz, Jett Iglesias and colleagues, with an educational blair from [employer]. Depression screen completed yes Social History Living Situation History Lives With: Family Housing: Apartment Tobacco History Smoking Status: Never smoker Second Hand Smoke Exposure: No Alcohol History Alcohol Intake: Never Domestic Abuse History Do You Feel Safe at Home: Yes Past Medical History Past Medical History Have you ever been diagnosed with any of the following: Cardiology Problems Congestive Heart Failure: No Respiratory Problems Chronic Obstructive Pulmonary Disease (COPD): No Stomache/Intestinal Problems Obesity: Yes Genital/Urinary Problems Renal Disease: No Endocrine Problems Diabetes Mellitus Type 1: No Diabetes Mellitus Type 2: No Other Problems Blood Transfusions: No Blood Transfusion Reaction: No Anesthesia Reactions: No Organ Transplant: No Chemotherapy: No Radiation Therapy: No Hyperbaric Therapy: No Cancer: No History of Present Illness HPI Narrative Floresita Villaseñor presents for follow-up of a of unknown location. She was initially seen in the emergency room on September 15, 2024, with right-sided abdominal pain, which has since resolved. The patient reports that the right-sided abdominal pain she experienced is gradually improving. She states, The pain is going away little by little. Floresita mentions that she had significant pain in her right side, which she believes might be related to a possible ectopic . She recalls, When I really started going to hospital, it was really bad. Currently, she denies any pain. Floresita has been monitored closely since her initial presentation, with multiple office visits and serial serum HCG measurements. She has undergone ultrasound evaluation as part of her workup for of unknown location. Review of Systems Gastrointestinal: Positive for right-sided abdominal pain, which has since resolved. Exam General General Appearance: alert, in no apparent distress and healthy appearing Head Head exam: atraumatic Neck Neck exam: Present normal inspection and trachea midline Chest Chest inspection: Present normal inspection and symmetric chest wall rise External exam: Present normal external exam; Absent tenderness Neuro Neurological exam: Present oriented X3 Psych Psychiatric exam: Present normal affect and normal mood Results Objective Laboratory: - Serum HCG: - 10/02/2024: 261 - 09/20/2024: 272 - 09/15/2024: 259 Imaging: - Ultrasound (09/20/2024): - Uterus: 9.1 cm - Endometrial stripe: 1.2 cm - Right ovary: 23 mm cyst - Left ovary: 2.7 cm measurement, no cyst Assessment & Plan Diagnosis / Problem List (1) of unknown anatomic location: Status: Acute (2) care following vaginal delivery: Status: Acute (3) Normal spontaneous vaginal delivery: Status: Acute (4) Ectopic of right ovary: Status: Acute Plan Floresita Villaseñor presents for follow-up of of unknown location, initially seen in the ER on 09/15/2024 for right-sided abdominal pain, which has since resolved. of Unknown Location Assessment: Patient is being monitored for of unknown location. Serial serum hCG levels have been trended: 259 on 09/15, 272 on 09/20, and most recently 261 on 10/20/24, showing a plateau. Ultrasound on 09/20 showed a 9.1 cm uterus, 1.2 cm endometrial stripe, right ovary with a 23 mm cyst, and left ovary measuring 2.7 cm without cyst. Patient reports right-sided abdominal pain that is gradually resolving, which she associates with a possible ectopic . Given the plateauing hCG levels and persistent right-sided pain, an ectopic is suspected. Plan: - Administer methotrexate: two doses, 2 hours apart - Repeat serum hCG in 15 days - Follow-up appointment in 3 weeks for ectopic follow-up - One additional lab test to be performed (details not specified) Office Procedures OB Clinic LOC & Office Proc's Nursing/Assessment Patient Status: Established Patient OB Clinic Nursing Assessment: BP Monitoring, Medication Reconciliation, Update PMH in EMR and Vital Signs OB Clinic Coordination of Care: Consent,records obtained, informed consent, Lab and Imaging orders, Results/Orders obtained and Staff clarify orders Established Patient Charge Established Patient Point Assignment: 80 Established Patient Point Charge: EP Level 3 (80-115)
== END 2024-10-06 13:54 | disposition home or self-care (01) ==
LOC: HODSOBC 12:50
PROVIDERS: PCP Obstetrics & Gynecology; Referring Provider Obstetrics & Gynecology; Supervising Provider Obstetrics & Gynecology; Visit Provider Obstetrics & Gynecology
DX: O00.201 Right ovarian pregnancy without intrauterine pregnancy (principal)
CPT/HCPCS: 99213; G0463

== ENCOUNTER 2024-10-17 11:27 | Day surgery (SDC) | payer MEDICAID, SELFPAY ==
[2024-10-17] VITALS (12 sets, daily range): BP systolic 124–149; BP diastolic 70–107; PULSE 64–90; RESP 13–23; TEMP 36.2–37; O2SAT 97–100; BMI 29.7
--- NOTE | 2024-10-17 12:29 | XR_ITS ---
Examination: Complete OB ultrasound, less than 14 weeks, transabdominal Date and time of exam: October 17, 2024 1359 hrs. Indications: Pelvic pain today, history of ectopic Technique: Obstetrical ultrasound images less than 14 weeks performed via transabdominal imaging Findings: Uterus 8.2 cm no intrauterine gestation Right ovary 4.4 cm arterial flow, complex mass adjacent to the right ovary 5.4 cm with possible gestational sac and cyst complex right ovary 2.8 cm Left ovary 3.2 cm arterial flow Impression: Findings suspicious for right ectopic , recommend short-term follow-up transvaginal pelvic sonography
--- NOTE | 2024-10-17 12:31 | PD.EDRME ---
Rapid Medical Screening Exam RME Arrival date/time: 10/17/24 11:27 This is a 29-year-old female that comes emergency room with complaints of right lower quadrant pain/right lower pelvic pain. Patient states that she was recently diagnosed with an ectopic in mid September. Patient states that since September she has been having vaginal bleeding. Patient states the bleeding is more lately. Patient is not sure if she is still . Patient is a poor historian. Patient is a 7 para 4. Patient was seen for this problem. I have greeted and performed a focused initial assessment of this patient. Initial appropriate labs ordered at this time. A comprehensive ED assessment and evaluation of the patient and analysis of all test and completion of medical decision making process will be conducted by additional ED provider. Chief Complaint: Abdominal Pain Time Seen by Provider: 10/17/24 11:48 Vital signs: Vital Signs Temperature 98.6 F 10/17/24 12:18 Pulse Rate 68 10/17/24 12:18 Respiratory Rate 18 10/17/24 12:18 Blood Pressure 149/95 H 10/17/24 12:18 Pulse Oximetry (%) 100 10/17/24 12:18 Oxygen Delivery Method Room Air 10/17/24 12:18
[2024-10-17 13:13] LABS: Collection Type, Urine Voided
[2024-10-17 13:19] LABS: Basophils % (Auto) 0 % (0-2.5); Eosinophils # (Auto) 0.1 Thou/mm3 (0.0-0.5); Eosinophils % (Auto) 2 % (0-10); Hematocrit 31.6 % (36.0-46.0); Hemoglobin 10.6 g/dL (12.0-16.0); Immature Granulocytes % (Auto) 0 % (0-0); Immature Granulocytes Auto 0.01 Thou/mm3 (0.00-0.00); Lymphocytes # (Auto) 1.4 Thou/mm3 (1.0-4.8); Lymphocytes % (Auto) 24 % (10-50); Mean Corpuscular HGB Conc 33.5 g/dl (31.0-37.0); Mean Corpuscular Hemoglobin 25.1 pg (25.0-35.0); Mean Corpuscular Volume 75 fL (80-100); Monocytes # (Auto) 0.4 Thou/mm3 (0.0-0.8); Monocytes % (Auto) 6 % (0-12); Neutrophils # (Auto) 3.9 Thou/mm3 (1.8-7.7); Neutrophils % (Auto) 67 % (37-80); Nucleated Red Blood Cell % 0 /100 WBC (0); Platelet Count 254 Thou/mm3 (140-440); RDW Standard Deviation 39.7 fL (36.4-46.3); Red Blood Count 4.22 Miln/mm3 (4.00-5.20); White Blood Count 5.8 Thou/mm3 (3.6-11.0)
[2024-10-17 13:25] LABS: Bacteria,Urine 4+; Bilirubin,Urine Negative (Negative); Blood,Urine 3+ (Negative); Clarity,Urine Hazy (Clear/Hazy); Color,Urine Yellow (Lt Yel-Yel); Culture Indicated,Urine Yes; Glucose, Urine Trace (Negative); Ketones,Urine Trace (Negative); Leukocyte Esterase,Urine Negative (Negative); Nitrite,Urine Positive (Negative); Protein,Urine 1+ (Neg - Trace); RBC,Urine 289 /hpf (0-3); Specific Gravity,Urine 1.036 (1.001-1.035); Squamous Epithelial Cell,Urine 3 /hpf (0-5); Urobilinogen,Urine Negative mg/dL (0.0-1.0); WBC,Urine 2 /hpf (0-5)
[2024-10-17 13:51] LABS: Alanine Aminotransferase 8 U/L (10-49); Albumin, Serum 4.7 gm/dL (3.5-5.0); Albumin/Globulin Ratio 1.7 (1.2-2.2); Alkaline Phosphatase 93 U/L (46-116); Anion Gap 10 (7-16); Aspartate Amino Transferase 19 U/L (0-34); BUN/Creatinine Ratio 23 Ratio (12-20); Beta HCG,Quantitative 75 mIU/mL (<5.0); Bilirubin,Total 0.7 mg/dL (0.3-1.2); Blood Urea Nitrogen 14 mg/dL (9-23); Calcium 8.8 mg/dL (8.3-10.6); Calcium (Corrected) 8.8 mg/dL (8.5-10.1); Carbon Dioxide 27.8 mMol/L (20.0-31.0); Chloride 105 mMol/L (98-107); Creatinine (Component) 0.6 mg/dL (0.6-1.3); Estimated Creatinine Clearance 117.8 mL/min (>60); Globulin 2.8 gm/dL (2.3-3.5); Glucose 117 mg/dL (74-106); Osmolality,Calculated 286 (275-295); Potassium 3.6 mMol/L (3.4-5.1); Sodium 143 mMol/L (136-145); Total Protein 7.5 gm/dL (5.7-8.2); eGFR > 60 See Note
--- NOTE | 2024-10-17 16:11 | EDNOTE_ITS ---
ED Abdominal Pain RME/HPI General Chief Complaint: Abdominal Pain Stated complaint: ABD PAIN POST ECTOPIC PREG X 1 MONTH Time seen by provider: 10/17/24 11:48 Arrival date/time: 10/17/24 11:27 RME / HPI RME / HPI narrative: 29-year-old female patient 7 para 4, came in for evaluation regarding right pelvic pain. Onset of symptoms since earlier this morning as recurrence and worsening pain to the right pelvic area, going to the right lower abdomen, associated with nausea, severity moderate. Patient was seen by Dr. Nowak about 10 days ago and was diagnosed with possible ectopic and was given methotrexate which the patient took x 2 doses. Patient continues to have vaginal bleeding, described as like a menstruations been ongoing for almost a month now. Patient denies any dizziness denies any other complaints. No medication was taken prior to arrival. Related Data Home Medications ?Medication ?Instructions ?Recorded ?Confirmed vitamins-iron fumarate 27 1 tab PO QDAY 08/0610/06/24 mg iron-folic acid 0.8 mg tablet ( Vitamin) Previous Rx's ?Medication ?Instructions ?Recorded ferrous sulfate 325 mg (65 mg 325 mg PO QDAY #30 tabs 10/17/24 iron) tablet hydrocodone 5 mg-acetaminophen 325 1 tab PO Q6H PRN pa in #10 tabs 10/17/24 mg tablet ibuprofen 800 mg tablet 800 mg PO Q8H PRN pain #20 t abs 10/17/24 polyethylene glycol 3350 17 gram 17 g PO QDAY #14 ea 0 10/17/24 oral powder packet (Miralax) Allergies Allergy/AdvReac Type Severity Reaction Status Date / Time No Known Allergies Allergy Verified 10/17/24 11:30 Review of Systems Review of Systems Narrative Review of Systems: Review of system reviewed and within normal limits except mentioned in HPI ED Exam Narrative Physical exam: VITAL SIGNS: Reviewed. GENERAL APPEARANCE: Alert and interactive, follows commands, no acute distress, HEAD AND FACE: Non-traumatic. ENT: PERRL, pink conjunctivitis, eyelid no trauma, Mucous membrane moist. NECK: Supple, nontender, no nuchal rigidity. CHEST: No tenderness, no crepitus, no paradoxical movement, no retractions. LUNGS: Clear, well ventilated, symmetric, no rales, no wheezing, no ronchi, no stridor, good breath sounds bilaterally. HEART: Regular rate, regular rhythm, no murmur, no gallops. ABDOMEN: Soft, positive bowel sounds, nondistended, no guarding, right lower quadrant tenderness, no rebound, no masses, RECTAL: Deferred. GENITAL: Deferred. NEUROLOGICAL: Gross motor function intact sensory function intact, Appropriate for age. MUSCULOSKELETAL: low back nontender, full range of motion. EXTREMITIES: Nontender, full range of motion. SKIN: Color pink, dry, no rash, no lacerations, no abrasions, no contusions. LYMPHATICS: Deferred. Course Quality Measures none Orders Category Date Time Status Patient Condition Routine Admission 10/17/24 18:[address] in Surgical Day Care Routine Admission 10/17/24 18:22 Active Activity as Tolerated Routine Care 10/17/24 18:21 Ordered COVID-19 Screening Questionnaire NOW Care 10/17/24 17:51 Active Decision to Admit X1 Care 10/17/24 17:51 Completed IV [Insert IV] NOW Care 10/17/24 16:28 Active NPO NOW Care 10/17/24 18:24 Active Obtain Written Consent For: NOW Care 10/17/24 18:21 Active Sequential Compression Device NOW Care 10/17/24 18:24 Active Urinary Catheter QS Care 10/17/24 18:21 Active Consult to Gynecology Stat Cons 10/17/24 16:22 Ordered Diet NPO (NOW) Diet 10/17/24 18:24 Active US OB <= 14 weeks fetus Stat Exams 10/17/24 12:29 Completed ABO/RH Type - Stat Lab 10/17/24 12:50 Completed Beta HCG,Quantitative Stat Lab 10/17/24 12:50 Completed CBC Stat Lab 10/17/24 12:50 Completed Comprehensive Metabolic Panel Stat Lab 10/17/24 12:50 Completed Urinalysis, C/S if Indicated Stat Lab 10/17/24 12:57 Completed Urine Culture Stat Lab 10/17/24 12:57 Received Midazolam Inj [Versed Inj] Med 10/17/24 17:44 Discontinued 2 mg .ROUTE .STK-MED ONE Propofol Inj [Diprivan Inj] Med 10/17/24 17:44 Discontinued 200 mg IV .STK-MED ONE Rocuronium Inj [Zemuron Inj] Med 10/17/24 17:44 Discontinued 100 mg .ROUTE .STK-MED ONE ceFAZolin [Ancef] 1 gm Med 10/17/24 18:21 Active Sodium Chloride 0.9% [Ns] 100 ml IV X1 fentaNYL INJ [Sublimaze Inj] Med 10/17/24 17:44 Discontinued 100 mcg .ROUTE .STK-MED ONE Code Status Routine Oth 10/17/24 18:21 Ordered Vital Signs Vital signs: Vital Signs Temperature 98.6 F 10/17/24 12:18 Pulse Rate 68 10/17/24 12:18 Respiratory Rate 18 10/17/24 12:18 Blood Pressure 149/95 H 10/17/24 12:18 Pulse Oximetry (%) 100 10/17/24 12:18 Oxygen Delivery Method Room Air 10/17/24 12:18 Abdominal Pain [facility] Narrative [facility] Narrative:: 29-year-old female patient 7 para 4, came in for evaluation regarding right pelvic pain. Onset of symptoms since earlier this morning as recurrence and worsening pain to the right pelvic area, going to the right lower abdomen, associated with nausea, severity moderate. Patient was seen by Dr. Nowak about 10 days ago and was diagnosed with possible ectopic and was given methotrexate which the patient took x 2 doses. Patient continues to have vaginal bleeding, described as like a menstruations been ongoing for almost a month now. Patient denies any dizziness denies any other complaints. No medication was taken prior to arrival. Patient's workup is significant for hemoglobin of 10.6 hematocrit of 31.6, hCG 75, ultrasound of pelvis showed Findings suspicious for right ectopic , recommend short-term follow-up transvaginal pelvic sonography Case discussed with Dr. Jackson, HOSPITAL CLEANING SPECIALIST on-call, who examined the patient in the emergency room and decided to do surgery today Patient data External records reviewed:: None Clinical information provided by:: patient and family Social determinants that could affect healthcare access:: none Patient has the following chronic illnesses:: None How is presenting disease/condition affected by chronic disease/condition?: no chronic disease Evaluation data The following diagnostics were reviewed and interpreted by me:: lab results and radiology exam(s) Lab and/or radiology exams considered but not ordered:: None Interpretation Summary: See results in MDM none Medications / Prescriptions Medications or Prescriptions considered but not ordered:: None Medication administrations:: Medication Administration History Cefazolin Sodium 1 gm/ Sodium (Chloride) 100 mls @ 100 mls/hr IV X1 ONE Stop: 10/17/24 19:20 Discontinued Medications Fentanyl Citrate (Fentanyl Cit Inj 50 Mcg/Ml Amp 2ml) Confirm Administered Dose 100 mcg .ROUTE .STK-MED ONE Stop: 10/17/24 17:45 Midazolam HCl (Midazolam Inj 1 Mg/Ml Vial 2 Ml) Confirm Administered Dose 2 mg .ROUTE .STK-MED ONE Stop: 10/17/24 17:45 Propofol (Propofol Inj 10 Mg/Ml Vial 20 Ml) Confirm Administered Dose 200 mg IV .STK-MED ONE Stop: 10/17/24 17:45 Rocuronium Rosharon (Rocuronium Inj 10 Mg/Ml Vial 10 Ml) Confirm Administered Dose 100 mg .ROUTE .STK-MED ONE Stop: 10/17/24 17:45 Cefazolin IV Consultations Consultation(s) initiated? (list below): Yes Consultation #1 (Physician, Specialty, Details): Dr. Jackson HOSPITAL CLEANING SPECIALIST, discussed the case, thank you . Diagnosis Differential diagnosis abdominal pain: abdominal pain and other (Ectopic ) Most likely diagnosis given after review of the tests above:: Ectopic , anemia Admission Indicated Admission indicated?: indicated Admission Request Was there a request for admission?: Yes Admission Attestation Admission request attestation: Admitted by HOSPITAL CLEANING SPECIALIST Disposition Plan Disposition Plan: Admit Discharge Plan Plan Patient Disposition: Admit Acute Care w/in Hospital Patient condition on transfer: Stable Problem List Clinical Impression: Ectopic of right ovary, Anemia Patient/Caregiver Discharge Instructions Discharge Activity: activity as tolerated and other Other Activity Instructions:: Vaginal rest and no heavy lifting more than 10 pounds for 4 [address] while taking narcotic. Diet Instructions: Regular
--- NOTE | 2024-10-17 16:51 | PC.NURSE ---
Dr Jackson at bedside speaking with patient
--- NOTE | 2024-10-17 17:38 | PD.GYNHP ---
Documentation for date of: 10/17/24 CLOTH DYEING RANGE TENDER - HPI History of Present Illness History of present illness: Floresita is a 29yo with known right sided ectopic , treated with oral methotrexate (50mg PO x2 doses 2 hours apart) on 10/06/24 presenting to ER with increasing RLQ pain. She has had bleeding for 1 month, RLQ pain initially resolved after receiving methotrexate, but resumed this morning. She took one dose of buscapina (a pain medication from [place] that has acetaminophen and caffeine in it) this morning which helped a little, but it wore off and pain worsened- she rates pain currently an 8/10 in severity. She has nausea associated with the pain, but no vomiting. Last ate at 0830 today. Initial ER visit was 09/15 for vaginal bleeding and RLQ pain in early with of unknown location diagnosed. Hcg 259. Ultrasound showed no IUP, Right ovary 4.6 cm arterial flow, possible gestational sac 13 mm in the right adnexal region with hyperechoic rim . Follow up office visit with Dr. Nowak 09/22: plan to repeat hcg and ultrasound 2nd ER visit on 09/28 for continued vaginal bleeding and RLQ pain: Hcg 272. Pelvic ultrasound showed No intrauterine gestation. No findings diagnostic for ectopic . Follow up office visit with Dr. Nowak 09/29: plan to follow hcg levels. Follow up office visit with Dr. Nowak 10/06: treatment with oral methotrexate with plan to repeat hcg in 15 days and follow up office visit in 3 weeks Review of Systems Review of Systems Narrative Review of Systems: Review of Systems Systems Reviewed: All systems reviewed, normal except as documented Constitutional Constitutional: Denies body ache(s), Denies chills, Denies fever(s) and Denies headache(s) ENT Ears, Nose, Mouth, and Throat: Denies headache(s) and Denies vertigo Cardiovascular Cardiovascular: Denies chest pain, Denies palpitations, Denies dyspnea and Denies syncope Respiratory Respiratory: Denies cough, Denies dyspnea Gastrointestinal Gastrointestinal: Denies nausea and Denies vomiting. RLQ pain. Nausea. Neurologic Neurologic: Denies convulsions, Denies headache(s), Denies other visual disturbances, Denies syncope and Denies vertigo Past Medical History Family History OTHER FAMILY HX: No history of gynecologic cancer Surgical History OTHER SURGICAL HX: Denies any surgery Social History SOCIAL: No hx of tobacco/ETOH/illicit drug use. with good social support. Not currently working outside the home. Youngest child is 18mo. Past Medical History Comments PMH COMMENT: BMI 29 Anemia Hgb 10.6 History of chlamydia age 13. History of abnormal pap 8 years ago treated with cryotherapy with normal paps after Meds Home Medications and Allergies Home Medications ?Medication ?Instructions ?Recorded ?Confirmed ?Type vitamins-iron fumarate 27 1 tab PO QDAY 08/07/19 10/06/24 History mg iron-folic acid 0.8 mg tablet ( Vitamin) Allergies Allergy/AdvReac Type Severity Reaction Status Date / Time No Known Allergies Allergy Verified 10/17/24 11:30 Exam - [employer] D[employer] RANGE TENDER Vital Signs Temp Pulse Resp BP Pulse Ox O2 Del Method 98.4 F 88 17 134/86 H 100 Room Air 10/17/24 16:52 10/17/24 16:52 10/17/24 16:52 10/17/24 16:52 10/17/24 16:52 10/17/24 16:52 Narrative Exam General: well developed, well nourished, no acute distress, conversant Cardiac: normal heart rate Lungs: breathing without distress Abdomen: soft, non-distended, tenderness to deep palpation in the right and left lower quadrants (left side refers to right), no rebound, slight guarding Extremities: no pain with palpation of calves, no BLE edema [employer] D[employer]ING RANGE TENDER - Results Labs 10/17/24 12:50 10/17/24 12:50 Labs: Short CBC 10/17/24 Range/Units 12:50 WBC 5.8 (3.6-11.0) Thou/mm3 Hgb 10.6 L (12.0-16.0) g/dL Hct 31.6 L (36.0-46.0) % Plt Count 254 (140-440) Thou/mm3 BMP 10/17/24 12:50 Sodium 143 Potassium 3.6 Chloride 105 Carbon Dioxide 27.8 BUN 14 Creatinine 0.6 Glucose 117 H Calcium 8.8 Liver Function 10/17/24 Range/Units 12:50 Total Bilirubin 0.7 (0.3-1.2) mg/dL AST 19 (0-34) U/L ALT 8 L (10-49) U/L Alkaline Phosphatase 93 (46-116) U/L Albumin 4.7 (3.5-5.0) gm/dL Urine 10/17/24 Range/Units 12:57 Urine Color Yellow (Lt Yel-Yel) Urine Clarity Hazy (Clear/Hazy) Urine pH 6.0 (5.0-7.0) Ur Specific Sullivan 1.036 H (1.001-1.035) Urine Protein 1+ A (Neg - Trace) Urine Glucose (UA) Trace (Negative) Impressions Impression: Examination: OB Transvaginal ultrasound of the pelvis, complete Technique: Transvaginal sonographic images pelvis performed using prince scale imaging Exam date and time: September 28, 2024 1908 hours INDICATIONS: Vaginal bleeding and right pelvic pain beginning 2 weeks ago, pelvic sonogram September 15, 2024 suspicious for right ectopic FINDINGS: Uterus 9.1 cm endometrial stripe 1.2 cm No uterine mass or intrauterine gestation Right ovary 3.9 cm arterial flow 23 x 22 mm cyst Left ovary 2.7 cm arterial flow No ectopic currently depicted IMPRESSION: No intrauterine gestation No findings diagnostic for ectopic Suggest continued short term follow-up transvaginal pelvic sonography as clinically warranted. Examination: Complete OB ultrasound, less than 14 weeks, transabdominal Date and time of exam: October 17, 2024 1359 hrs. Indications: Pelvic pain today, history of ectopic Technique: Obstetrical ultrasound images less than 14 weeks performed via transabdominal imaging Findings: Uterus 8.2 cm no intrauterine gestation Right ovary 4.4 cm arterial flow, complex mass adjacent to the right ovary 5.4 cm with possible gestational sac and cyst complex right ovary 2.8 cm Left ovary 3.2 cm arterial flow Impression: Findings suspicious for right ectopic , recommend short-term follow-up transvaginal pelvic sonography Assessment and Plan Assessment and plan (1) Ectopic of right ovary: Status: Acute Assessment and plan: Floresita is a 29yo with right ectopic having recurrence of pain with increased size of ectopic to 5.4cm 11 days after receiving oral MTX therapy. Hcg declined from 272 to 75. However, on 09/28 pelvic ultrasound showed no findings suggestive of ectopic - so ultrasound findings today indicate a significant change. No evidence of rupture of ectopic currently. Vitals wnl. Exam significant for right and left lower quadrant tenderness to palpation, mild guarding. Last ate at 0830. PMhx complicated by: BMI 29 Anemia Hx of chlamydia age 13 Plan: -Admit -NPO -Counseled/consented re: right ectopic having failed methotrexate treatment with recommendation for surgical management consisting of laparoscopic right salpingectomy (possible left salpingectomy). Discussed all r/b/a to include: bleeding (possible need for blood transfusion), infection (subcutaneous, deeper layers or intra-abdominal with possible need for prolonged admission or re-admission for IV antibiotics, I&D with wound packing), injury to nearby structures such as bowel, bladder, ureters, blood vessels, nerves with possible need for re-operation, pain. Rare complications such as MN, DVT/PE, . We discussed the option of forgoing surgery and potentially repeating methotrexate outpatient, but given the increased size of the right adnexal mass in the setting of recurrence of pain, we discussed that there is risk for rupture of the ectopic with subsequent life-threatening bleeding. She declines non-surgical management. Answered all questions to patient and their support person's satisfaction. -construction supervisor informed of intent for surgery and OR team called in -Patient will require general anesthesia which we discussed, and she will discuss further with her anesthesiologist -She will need 1 week follow up for postop visit with Dr. Nowak -We discussed post-op pain meds that will be sent to her pharmacy, expectations for recovery (2) Anemia: Status: Acute (3) BMI 29.0-29.9,adult: Status: Acute (4) History of chlamydia: Status: Acute (5) History of abnormal cervical Pap smear: Status: Acute Quality Measures Quality Measures VTE prophylaxis (SCDs to be applied in OR) (2) Anemia Qualifiers: Anemia type: iron deficiency Iron deficiency anemia type: unspecified iron deficiency Qualified Code(s): D50.9 - Iron deficiency anemia, unspecified
--- NOTE | 2024-10-17 18:06 | PC.NURSE ---
Report given to Ksenia Hawkins, patient will be going to surgery.
--- NOTE | 2024-10-17 19:57 | SUR.PHASEI ---
received report from MARGIE Romo and KAYLIN Smallwood. Pt uneasy with frequent repositioning and movement of arms and legs. Unable to obtain a stable BP. Kaylin Smallwood at bedside and monitoring the patient at this time. no orders received.
[2024-10-17] MEDS: ACETAMINOPHEN IVPB 1,000 MG/100 ML VIAL 250 MG IV (20:07)
--- NOTE | 2024-10-17 20:07 | ESOP_ITS ---
Operative Note - PROGRAM TECHNICIAN Procedure Date of procedure: 10/17/24 Procedure Performed: Laparoscopic right salpingectomy, lysis of adhesions Indication: Floresita is a 29yo with right ectopic treated with oral methotrexate on 10/06/24, presenting to ER with increasing RLQ pain and new finding of 5.4cm mass adjacent to right ovary (when imaging previously did not note distinct mass). After counseling regarding management options, patient desired to proceed with surgery for definitive management of ectopic . Pre-Op diagnosis: Right ectopic Right lower quadrant pelvic pain Post-Op diagnosis: Right ectopic , ruptured and adhered to anterior abdominal wall and omentum Right lower quadrant pelvic pain Umbilical hernia, reducable, with omentum adhered Anesthesia type: General Fluids: crystalloid Fluid amount (mL): 1,000 Specimen: right tube (with ectopic ) Estimated blood loss (ml): 10 Findings: Approximately 50cc of hemoperitoneum present on entry. Right fallopian tube/ovary complex adhered to anterior abdominal wall with filmy adhesions as well as omentum. Right fallopian tube had clot adherent to area of rupture of fallopian tube, not actively bleeding. Right ovary, uterus, left fallopian tube and left ovary all normal in appearance. Normal appearing liver edge. Appendix not visualized. Complications: none Narrative: After obtaining informed consent, the patient was taken to the operating room where she underwent general endotracheal anesthesia. She was placed in the low lithotomy position, and the perineum and vagina were prepped and draped in sterile fashion. She was given Ancef 2g IV for surgical prophylaxis. Bilateral sequential compression devices were placed as well as singleton catheter. Time out was performed and team was in agreement. The bivalved speculum was inserted into the vagina. Visualization of cervix davide wed cervix to be closed with no active bleeding. Scant blood in vaginal vault. The anterior segment of the cervix was grasped with a single-tooth tenaculum. Bivalved speculum was removed. After anesthetizing with 0.5% marcaine, a 5-mm incision was made in the supra- umbilical fold beneath the subcutaneous tissue (taking care to avoid an umbilical hernia). A 5-mm trocar was placed under direct visualization. Laparoscope was advanced through the port, and intra-abdominal placement was confirmed. Continuous flow carbon dioxide began to establish a pneumoperitoneum at 15mmHg pressure. Immediate inspection revealed the right ovary/fallopian tube complex adhered to the right anterior abdominal wall as well as omentum, small amount of hemoperitoneum, and omentum adhered up to the area of the umbilical hernia. After anesthetizing with 0.5% marcaine, a 5-mm incision was made in the RLQ and a 5-mm port was placed under direct visualization. After anesthetizing with 0.5% marcaine, a 10-mm incision was made in the LLQ and a 10-mm port was placed under direct visualization. Suction of the pelvis was performed until all anatomy was able to be visualized. Blunt dissection of filmy adhesions of the right ovary/fallopian tube complex was performed to drop the complex down off of the anterior abdominal wall and then blunt dissection of the adhesions between extruded portion of ectopic from fallopian tube and omentum was performed. At that point, a laparoscopic harmonic device was inserted through the left lateral port and grasper was placed through the right lateral port which lifted up the ovarian/tube complex. The harmonic device was then used to ligate and excise the fallopian tube fully starting at the fimbriated end and terminating just before the cornua of the uterus, maintaining good distance from the ovary so as to not compromise the ovary's blood supply. The pedicle was noted to be hemostatic. An Endocatch bag was then inserted into the left lateral port and the right fal lopian tube with ectopic was inserted into the Endocatch bag. The Endocatch bag could not be fully brought up through the port site due to the size of the specimen, so a brett clamp was used to pull up a few small pieces of the specimen (and suction was performed within the bag), so that the majority of the specimen could then be delivered up through the port site. Specimen handed off to go to pathology. The [place] CloseSure device was used for closure of the left lateral port site using 0-vicryl. The pelvis was irrigated and suctioned, hemostasis again ensured. At that point, removal of the ports was performed after releasing the pneumoperitoneum. More 0.5% marcaine was used to anesthetize the port sites and the skin was then closed with 4-0 monocryl in interrupted fashion by DRAWING IN MACHINE TENDER. Dermabond applied over sutured incisions. Bivalved speculum placed in vagina and the tenaculum was removed. Tenaculum sites noted to be hemostatic. The bivalved speculum was removed. Singleton catheter was removed. The patient was awakened from general anesthesia and transferred to the recovery room in good condition. Sponge, lap, needle, instrument counts correct x2. Surgical staff Operation Date: 10/17/24 18:30 <No data on this case meets the specified criteria> Diagnosis Discharge Diagnosis (1) Ectopic of right ovary: Status: Acute (2) Anemia: Status: Acute (3) BMI 29.0-29.9,adult: Status: Acute (4) History of chlamydia: Status: Acute Problem List Completed Was Problem List Reviewed/Reconciled?: Yes (2) Anemia Qualifiers: Anemia type: iron deficiency Iron deficiency anemia type: unspecified iron deficiency Qualified Code(s): D50.9 - Iron deficiency anemia, unspecified
--- NOTE | 2024-10-17 20:10 | SUR.PHASEI ---
pain med infusing as ordered, pt beginning to relax, vss. BP improving. pt denies any chest pain, calderon, or dizziness. pt continues to c/o abd pain. pain med continues to infuse.
[2024-10-17] MEDS: fentaNYL CIT INJ 50 mCg/ML AMP 2ML IV (20:22)
--- NOTE | 2024-10-17 20:40 | SUR.PHASEII ---
pt recoverying well, vss, no distress noted, pt asleep at this time. Pt's at bedside.
--- NOTE | 2024-10-17 20:41 | SUR.PHASEI ---
pt calm, vss, dressing remains CDI, pt c/o 06/12 pain to abd. no distress noted at this time.
--- NOTE | 2024-10-17 21:00 | SUR.PHASEII ---
dc instructions given to pt and her via ripening room attendant Adri KNIGHT, stated verbal understanding. pt's vss, dressing remains CDI. IV removed with cath intact, pt tolerated well.
--- NOTE | 2024-10-17 21:01 | PD.GYNDS ---
Planned Discharge Date 10/17/24 DS: Providers Provider Date of admission: 10/17/24 Primary care physician: Jens Nowak MD Attending Provider on Admission: Keira Jackson MD Consults: 10/17/24 16:22 Consult to Gynecology Stat Comment: ectopic Consulting Provider: Keira Jackson Attending Provider on DC: Keira Jackson MD Discharging Provider: Keira Jackson MD DS: Diagnosis Discharge Diagnosis (1) Ectopic of right ovary: Status: Acute (2) Anemia: Status: Acute (3) BMI 29.0-29.9,adult: Status: Acute (4) History of chlamydia: Status: Acute Problem List Completed Was Problem List Reviewed/Reconciled?: Yes Hospital Course Hospital Course Hospital course: Floresita is a 29yo with known right sided ectopic , treated with oral methotrexate (50mg PO x2 doses 2 hours apart) on 10/06/24 presenting to ER with increasing RLQ pain. She has had bleeding for 1 month, RLQ pain initially resolved after receiving methotrexate, but resumed this morning. She took one dose of buscapina (a pain medication from [place] that has acetaminophen and caffeine in it) this morning which helped a little, but it wore off and pain worsened- she rates pain currently an 8/10 in severity. She has nausea associated with the pain, but no vomiting. Last ate at 0830 today. Initial ER visit was 09/15 for vaginal bleeding and RLQ pain in early with of unknown location diagnosed. Hcg 259. Ultrasound showed no IUP, Right ovary 4.6 cm arterial flow, possible gestational sac 13 mm in the right adnexal region with hyperechoic rim . Follow up office visit with Dr. Nowak 09/22: plan to repeat hcg and ultrasound 2nd ER visit on 09/28 for continued vaginal bleeding and RLQ pain: Hcg 272. Pelvic ultrasound showed No intrauterine gestation. No findings diagnostic for ectopic . Follow up office visit with Dr. Nowak 09/29: plan to follow hcg levels. Follow up office visit with Dr. Nowak 10/06: treatment with oral methotrexate with plan to repeat hcg in 15 days and follow up office visit in 3 weeks She underwent uncomplicated laparoscopic right salpingectomy with removal of ruptured (but hemostatic) ectopic that was adhered to anterior abdominal wall and omentum. Discharged from [id number]. Status at Discharge Functional status at discharge: independent ambulation Overall status at discharge: patient is back to baseline Time Spent with Patient Time attestation: Total time spent providing and/or coordinating discharge services: Time spent: Less than 30 minutes Exam - PUBLICITY PERSON Vital Signs Temp Pulse Resp BP Pulse Ox O2 Del Method O2 Flow Rate 97.2 F 64 20 135/87 H 100 Room Air 4 10/17/24 20:30 10/17/24 20:30 10/17/24 20:30 10/17/24 20:30 10/17/24 20:30 10/17/24 18:02 10/17/24 20:30 Narrative Exam General: well developed, well nourished, no acute distress, conversant Cardiac: normal heart rate Lungs: breathing without distress Abdomen: soft, appropriately tender without rebound/guarding. 3 laparoscopic port sites intact with dermabond overlying Extremities: no pain with palpation of calves Discharge Plan Plan Patient Disposition: HOME (Self Care) Patient condition on transfer: Stable Prescriptions/Referrals Prescriptions/Med Rec: New ibuprofen 800 mg tablet 800 mg PO Q8H PRN (Reason: pain) Qty: 20 0RF ferrous sulfate 325 mg (65 mg iron) tablet 325 mg PO QDAY Qty: 30 0RF hydrocodone-acetaminophen 5-325 mg tablet 1 tab PO Q6H MDD 4 tablets PRN (Reason: pain) Qty: 10 0RF polyethylene glycol 3350 [Miralax] 17 gram powder in packet 17 g PO QDAY Qty: 14 0RF sulfamethoxazole-trimethoprim [Bactrim DS] 800-160 mg tablet 1 tab PO BID Qty: 6 0RF Continued Vitamin 27 mg iron- 0.8 mg Tablet 1 tab PO QDAY Discontinued methotrexate sodium 10 mg tablet 50 mg PO Q2H Qty: 10 0RF meloxicam 7.5 mg tablet 7.5 mg PO QDAY Qty: 10 0RF ibuprofen 800 mg tablet 800 mg PO Q6H MDD 4 PRN (Reason: pain) Qty: 90 0RF ferrous sulfate [Dheeraj-Time] 325 mg (65 mg iron) tablet 325 mg PO BID Qty: 60 0RF docusate sodium [Colace] 100 mg capsule 100 mg PO BID Qty: 60 0RF lanolin 50 % ointment 1 applic topical TID PRN (Reason: skin irritation) Qty: 15 0RF ondansetron 4 mg tablet,disintegrating 4 mg PO Q6H PRN (Reason: nausea and vomiting) Qty: 10 0RF Referrals: Jens Nowak MD [Primary Care Provider] - In 1 week Patient/Caregiver Discharge Instructions Discharge Activity: activity as tolerated and other Other Discharge Activity Instructions:: Vaginal rest and no heavy lifting more than 10 pounds for 4 [address] while taking narcotic. Other Discharge Diet Instructions: Regular Education Materials: Anesthesia: General Anesthesia, Anemia, Understanding Urinary Tract ..., After Laparoscopic Treatment ..., Preventing Surgical Site Infections, [facility] General Discharge-T[place], [facility] General ORC Instructions- [place] Print Language: [place] Activity Restrictions/Additional Instructions: Follow up with Dr. Nowak in 1 week, call office to schedule post-operative appointment Stand Alone Forms: Rosalinda Award Info., Patient Portal Info Letter Discharge Order Discharge Orders: Discharge (Routine); Ordered 10/17/24 Ordered By: Keira Jackson (2) Anemia Qualifiers: Anemia type: iron deficiency Iron deficiency anemia type: unspecified iron deficiency Qualified Code(s): D50.9 - Iron deficiency anemia, unspecified
== END 2024-10-17 21:24 | disposition home or self-care (01) ==
LOC: SERX 18:21 → S2EX 18:26
PROVIDERS: Nurse Practitioner Family; Emergency Provider Emergency Medicine; PCP Obstetrics & Gynecology; Referring Provider Obstetrics & Gynecology; Visit Provider Obstetrics & Gynecology
PROC: (CPT 58670; principal; 2024-10-17 18:30)
DX: O00.90 Unspecified ectopic pregnancy without intrauterine pregnancy (principal)
CPT/HCPCS: 59151; 36415; 76801; 80053; 81001; 84702; 85025; 86900; 86901; 87077; 87086; 87186; 99285; A4217; A4649; J0131; J0690; J1100; J1885; J2250; J2405; J2704; J3010; J3490

== ENCOUNTER 2024-10-29 10:55 | Outpatient (AMB) | payer MEDICAID, SELFPAY ==
--- NOTE | 2024-10-29 11:06 | GYNCLNT_ITS ---
Vital Signs 10/29/24 11:07 Height 1.5 m Height Method Stated Weight 72.688 kg Weight Measurement Method Standing Scale BMI 32.3 BP 119/79 Blood Pressure Source Automatic Cuff Blood Pressure Location Right Upper Arm Position Sitting Respiration 16 Pulse 84 Pulse Source Monitor Temp 97.7 F Temp Source Oral Pulse Oximetry (%) 95 Oxygen Delivery Method Room Air Allergies/Home Meds Allergies & Medications Allergies No Known Allergies Allergy (Verified 10/29/24 11:08) Medication Reconciliation vitamins-iron fumarate 27 mg iron-folic acid 0.8 mg tablet ( Vitamin) 1 tab PO QDAY 08/07/19 [History Confirmed 10/29/24] ferrous sulfate 325 mg (65 mg iron) tablet 325 mg PO QDAY #30 tabs 10/17/24 [Rx Confirmed 10/29/24] hydrocodone 5 mg-acetaminophen 325 mg tablet 1 tab PO Q6H PRN pain #10 tabs 10/17/24 [Rx Confirmed 10/29/24] ibuprofen 800 mg tablet 800 mg PO Q8H PRN pain #20 tabs 10/17/24 [Rx Confirmed 10/29/24] polyethylene glycol 3350 17 gram oral powder packet (Miralax) 17 g PO QDAY #14 ea 10/17/24 [Rx Confirmed 10/29/24] sulfamethoxazole 800 mg-trimethoprim 160 mg tablet (Bactrim DS) 1 tab PO BID #6 tabs 10/17/24 [Rx Confirmed 10/29/24] Intake Visit Data Collection New Patient or Established: Established Patient (seen at [facility] within 3 years) Reason for Visit:: Postoperative care following laparoscopic removal of right ectopic on 10/17/2024 Seen by Clinical Staff ONLY (RN/MA): No Shop Service Technician Required: No Do You Feel Safe at Home: Yes Authorities Contacted: N/A PCP or OBGYN visit in last 3 months: Yes Hx Now: No Are you currently on any form of Control: No Pain Present Currently: Yes Pain Location: Abdomen (LOWER) Pain Scale Used: Aldana-Child/Numerical Pain scale:: 4 Smoking Status Smoking Status: Never smoker [employer]: Past Medical History Past Medical History: No Hx Neurological Disorders, No Hx Cardiac Disorders, No Hx Cancer, No Hx Blood Disorders, No Hx Gastrointestinal Disorders, No Hx Renal Disease, No Hx Diabetes Mellitus Type 1 and No Hx Diabetes Mellitus Type 2 Questionnaires PHQ-9 PHQ-2 Over the last 2 weeks, how often have you been bothered by any of the following problems? 1. Little interest or pleasure in doing things: not at all PHQ-9 8. Moving or speaking so slowly that other people could have noticed? - Or the opposite - being so fidgety or restless that you have been moving around a lot more than usual: not at all Source: Developed by Drs. Florentino Anaya, Aidee Paz, Jett Iglesias and colleagues, with an educational blair from [employer]. Social History Living Situation History Lives With: Family Housing: Apartment Tobacco History Smoking Status: Never smoker Second Hand Smoke Exposure: No Alcohol History Alcohol Intake: Never Domestic Abuse History Do You Feel Safe at Home: Yes History of Present Illness HPI Narrative Floresita Villaseñor presents for postoperative care following a laparoscopic removal of a right ectopic on October 17, 2024. The patient reports feeling a little sore, but getting better since the surgery. The pathology report confirmed a right tubal . The patient's last serum hCG level was 272, which dropped to 72 on the day of her surgery. Dr. Jackson performed the procedure, removing only the sac that was outside the uterus, without removing any other parts. Floresita is not currently trying for but may consider it in the future. She has been advised to allow 2-3 months for healing before attempting conception. Floresita does not report any specific concerns or complications from the surger y. She is recovering as expected and does not require any further follow-up at this time. The patient has been informed that she can return if any issues arise. Review of Systems Musculoskeletal: Positive for soreness. Exam General General Appearance: alert, in no apparent distress and healthy appearing Head Head exam: atraumatic Neck Neck exam: Present normal inspection and trachea midline Chest Chest inspection: Present normal inspection and symmetric chest wall rise External exam: Present normal external exam; Absent tenderness Neuro Neurological exam: Present oriented X3 Psych Psychiatric exam: Present normal affect and normal mood Office Procedures OB Clinic LOC & Office Proc's Nursing/Assessment Patient Status: Established Patient OB Clinic Nursing Assessment: Medication Reconciliation, Update PMH in EMR and Vital Signs OB Clinic Coordination of Care: Complex Care and Chronic Disease 1-5, Consent,records obtained, informed consent, Education Simp Pt/Fam, Lab and Imaging orders, Results/Orders obtained and Staff clarify orders Established Patient Charge Established Patient Point Assignment: 105 Established Patient Point Charge: EP Level 3 (80-115) Assessment & Plan Diagnosis / Problem List (1) Ectopic , tubal: Status: Acute Plan Problem List - Ectopic , right tubal - Status post laparoscopic removal of ectopic Assessment Status post laparoscopic removal of right ectopic on 10/17/2024. Pathology report confirms right tubal . Last serum hCG was 272, which dropped to 72 on the day of surgery. Patient reports mild postoperative soreness but overall improvement. No complications noted. Plan - No immediate follow-up required for the ectopic surgery - Allow 2-3 months for healing before attempting - Patient can resume trying for after 3 months and a few regular menstrual cycles - Patient is welcome to return if any concerns arise
[2024-10-29 11:07] VITALS: BP 119/79; PULSE 84; RESP 16; TEMP 36.5; O2SAT 95; BMI 32.3
== END 2024-10-29 11:35 | disposition home or self-care (01) ==
LOC: HODSOBC 10:55
PROVIDERS: PCP Obstetrics & Gynecology; Referring Provider Obstetrics & Gynecology; Supervising Provider Obstetrics & Gynecology; Visit Provider Obstetrics & Gynecology
DX: O00.101 Right tubal pregnancy without intrauterine pregnancy (principal); Z98.890 Other specified postprocedural states
CPT/HCPCS: 99213; G0463